=== PATIENT | female | born 1985 | race Caucasian/White ===

== ENCOUNTER 2024-07-25 08:16 | Outpatient (AMB) | payer OTHER, SELFPAY ==
--- NOTE | 2024-07-25 08:18 | A.OFFPC_ITS ---
Vital Signs 07/25/24 08:25 07/25/24 08:52 Height 5 ft 5 in Weight 174 lb 4 oz BMI 29.0 BP 118/68 Blood Pressure Location Lt brachial Position Sitting Respiration 13 Pulse 111 H 90 Pulse Source Pulse Oximeter Auscultation Temp 97.3 F Temp Source Oral Pulse Oximetry (%) 100 Oxygen Delivery Method Room Air Intake Visit Reasons: Est. 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 Allergies sulfamethoxazole [From Bactrim] Allergy (Severe, Verified 07/25/24 08:34) Rash trimethoprim [From Bactrim] Allergy (Severe, Verified 07/25/24 08:34) Rash hydroxychloroquine Allergy (Mild, Verified 07/25/24 08:35) Rash Medication List - Last Reconciled 07/25/24 by Lauren Owens, [facility]- valacyclovir 500 mg PO BID Tobacco use date assessed: 07/25/24 Dental Screening Dental Screen Date: 07/25/24 Did you have a dental visit in the last 12 months?: Yes Did you have a dental problem in the last 6 months where you did not have access to dental care?: No Was dental information given to patient?: Patient has dentist HPI HPI Comments History of Present Illness Details 38 y/o F with Rheumatoid arthritis, psor iasis, leukopenia, endometreosis, HSV 1, seasonal allergies, GIOVANI +, residential use of immunosuppresant drug, hx of abnormal pap ASCUS HPV 2010 s/p colpo s/p cholecystectomy, ovarian cyst removal, d&c missed Family hx: Dad ?? 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 Health Maintenance: Mammo June 2024 @ [facility] P[facility] 11/14/22 wnl Tdap 2016 Flu UTD Specialists: Rheumatology Angel Reis Previous PCP: [facility], records rec'd and reviewed Here today to establish care and for complete physical exam [facility], Dr. Mas. Was most recently on Humira but this was stopped several months ago due to concern for it contributing to her scalp psoriasis. Unfortunately it did not help her salt psoriasis at all. She reports that her rheumatoid symptoms are under control off of the medication. 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 Declined referral; risk w/ hx of meds for RA in the past Exam: General: Well developed, well nourished, in no acute distress. Appears stated age. Head: Normocephalic, atraumatic. Eyes: Pupils are equal, round and reactive to light and accommodation. Conjunctivae are clear. Vision grossly normal. Ears: TMs clear AU, EACS WNL Nose: Patent, without discharge. Mouth: There are no ulcers or lesions noted. No inflammation, no post nasal drip, no plaques nor exudates. Neck: Supple, no adenopathy or thyromegaly. Lungs: Clear to auscultation bilaterally. No rales, rhonchi or wheeze noted. Good air flow in all mitchell. Heart: Regular rate and rhythm. No murmurs, click, rubs or gallops are noted. Abdomen: Bowel sounds present in all quadrants. The abdomen is soft, nontender, with no masses or organomegaly noted. No hernias are noted. Musculoskeletal: Joints are nontender, without swelling, redness, or effusions. Range of motion is observed to be normal. Pulses: Peripheral pulses are equal and palpable bilaterally. Extremities: No clubbing, cyanosis nor edema is noted. Neurologic: Gait and station normal. Cranial Nerves 2-12 intact. Motor strength grossly symmetrical and intact. No sensory loss. Balance normal. Skin: No rashes, ulcers, or lesions noted. Turgor is good. Skin color is good. Hair and nails are without abnormalities. Right shoulder blade is a raised warty appearing lesion- advised to have derm eval this. Psych: Normal eye contact, affect and mood appropriate, and normal interactions. Patient is alert and appropriate to context. Discussion We discussed the patient's history of rheumatoid arthritis and psoriasis, including past medications and their impact. I explained the reasoning for obtaining baseline lab work in light of her mother's hemochromatosis diagnosis. The patient consented to receiving lab workups, which will include kidney and liver function tests, diabetes screening, CBC, ferritin, thyroid functions, and microalbumin levels. We reviewed the importance of keeping up with health screenings, such as mammograms, and noted she received a flu vaccine this season and is up to date with her tetanus shot. Her mammogram was normal earlier this year. I stressed the importance of using the patient portal for communication as it ensures expeditious and proper follow-up care. It's crucial that she promptly follows through to avoid complications from elevated iron levels. Plan: Cont care w/ team Baseline labs today - results will be sent to portal Refilled valacylovir RTO 1 year CPE, sooner PRN PFSH Medical History (Updated 07/25/24 @ 08:56 [facility] Hx of abnormal cervical Pap smear Ovarian cyst Surgical History (Updated 07/25/24 @ 08:34 by ERMELINDA Martin) History of D&C History of removal of ovarian cyst Hx laparoscopic cholecystectomy Family History (Updated 07/25/24 @ 08:30 by Varsha Grant MA) Maternal Grandmother Lung cancer Maternal Grandfather Substance abuse Social History (Updated 07/25/24 @ 08:25 by Varsha Grant MA) Household Members: Family and Children Both parents involved: No Caregiver staying overnight: No Housing: House Are you a primary care aide to a significant other at home: No Do you presently have visiting nurse or other home services: No 75 years or older and lives alone: No Alcohol intake: current Alcohol intake frequency: a few times a month Patient Tobacco Use Status: Never used Tobacco e-Cigarette/Vaping Use: Never Used Second Hand Smoke Exposure: No service: No Current occupational status: employed 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 1. Little interest or pleasure in doing things: not at all 2. Feeling down, depressed, or hopeless: not at all 3. Trouble falling or staying asleep, or sleeping too much: several days 4. Feeling tired or having little energy: not at all 5. Poor appetite or overeating: not at all 6. Feeling bad about yourself - or that you are a failure or have let yourself or your family down: not at all 7. Trouble concentrating on things, such as reading the newspaper or watching television: not at all 8. Moving or speaking so slowly that other people could have noticed. Or the opposite - being so fidgety or restless that you have been moving around a lot more than usual: not at all 9. Thoughts that you would be better off or of hurting yourself in some way: not at all Total score: 1 Depression Screening Interpretation: Negative Depression Screening Done: Yes 55001 - PHQ-9 Billing: Yes Source: Developed by Drs. Syed Alvarado, Ida Javed, Luis Hutchinson and colleagues, with an educational cesar from [employer]. Thrive Questionnaire Date Thrive assessed: 07/25/24 I am a: Patient What is your living situation today?: I have a steady place to live Within the past 12 months, did the food you bought not last and you didn't have the money to get more?: Never true Within the past 12 months, did you worry whether your food would run out before you got money to buy more?: Never true Do you have trouble paying for medicines?: No Do you have trouble getting transportation to medical appointments?: No Do you have trouble paying your heating and electricity bill?: No Do you have trouble taking care of your child, family member or friend?: No Do you have trouble with day-to-day activities such as bathing, preparing meals, shopping, managing finances, etc.?: No Are you currently unemployed and looking for a job?: No Are you interested in more education?: No Please select the resources that you would like help with: None Currently or been in a relationship where the following occur: No concerns reported THRIVE Score: 0 AUDIT C Alcohol Use Questionnaire (AUDIT-C) 1. How often do you have a drink containing alcohol?: 2-3 times a week 2. How many drinks containing alcohol do you have on a typical day when you are drinking?: 3 or 4 3. How often do you have six or more drinks on one occasion?: Never Total Score: 4 Score Reviewed/Action Taken: Yes NDAYA-7 AMB Questionnaire NADYA-7 Date NADYA - 7 assessed: 07/25/24 Feeling nervous, anxious, or on edge: 0 = Not at all Not being able to stop or control worryin = Not at all Worrying too much about different things: 0 = Not at all Trouble relaxin = Not at all Being so restless that it is hard to sit still: 0 = Not at all Becoming easily annoyed or irritable: 0 = Not at all Feeling afraid as if something awful might happen: 0 = Not at all Total NADYA-7 score (0-4 normal; 5-9 mild; 10-14 moderate; 15-21 severe): 0 Source: Developed by Drs. Syed Alvarado, Ida Javed, Luis vicente nd colleagues, with an educational cesar from [employer]. NADYA-7 Assessment Billing NADYA-7 Assessment Tool: NADYA-7 Assessment 31152 Physical exam (Primary Care) Vital Signs: Last Vital Signs Temp 97.3 F 07/25/24 08:25 Pulse 111 H 07/25/24 08:25 Resp 13 07/25/24 08:25 BP 118/68 07/25/24 08:25 Pulse Ox 100 07/25/24 08:25 Oxygen Delivery Method Room Air 07/25/24 08:25 BMI result Body Mass Index 29.0 Tobacco/Smoking Status: Tobacco use Status Tobacco use date assessed 07/25/24 07/25/24 08:27 Patient Tobacco Use Status Never used Tobacco 07/25/24 08:27 e-Cigarette/Vaping Use Never Used 07/25/24 08:27 PHQ-9: PHQ-9 Score PHQ-9: Total score 1 07/25/24 08:22 Depression Screening Interpretation: Negative Thrive Assessment: Date of Thrive Assessment Date Thrive assessed 07/25/24 07/25/24 08:22 Currently or been in a relationship where the following occur: No concerns reported Coding Level of Care Code New Pt Prev Care 40-64y(73516) Diagnoses Encounter for general adult medical examination without abnormal findings Z00.00 Rheumatoid arthritis involving multiple sites with positive rheumatoid factor M05.79 Rheumatoid arthritis location: multiple sites Rheumatoid factor presence: with rheumatoid factor 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 Neutropenia type: cyclic HSV-1 (herpes simplex virus 1) infection B00.9 GIOVANI positive R76.8 Endometriosis N80.9 Long-term use of immunosuppressant medication Z79.60 Family history of hemochromatosis Z83.49 Additional Codes NADYA-7 Assessment Billing - NADYA-7 Assessment Tool: NADYA-7 Assessment 20326 ([id number]) PHQ-9 - 00587 - PHQ-9 Billing: Yes ([id number]) Assessment & Plan Assessment & Plan (1) Encounter for general adult medical examination without abnormal findings: Code(s): Z00.00 - Encounter for general adult medical examination without abnormal findings (2) Rheumatoid arthritis: Comment: Dr Mas Code(s): M06.9 - Rheumatoid arthritis, unspecified Category: Medical Qualifiers: Rheumatoid arthritis location: multiple sites Rheumatoid factor presence: with rheumatoid factor Qualified Code(s): M05.79 - Rheumatoid arthritis with rheumatoid factor of multiple sites without organ or systems involvement (3) Leukopenia: Code(s): D72.819 - Decreased white blood cell count, unspecified Category: Medical Qualifiers: Leukopenia type: neutropenia Neutropenia type: cyclic Qualified Code(s): D70.4 - Cyclic neutropenia (4) HSV-1 (herpes simplex virus 1) infection: Code(s): B00.9 - Herpesviral infection, unspecified Category: Medical (5) GIOVANI positive: Code(s): R76.8 - Other specified abnormal immunological findings in serum Category: Medical (6) Endometriosis: Code(s): N80.9 - Endometriosis, unspecified Category: Medical (7) Long-term use of immunosuppressant medication: Comment: was on humira; currently off Code(s): 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 Orders: Orders Ferritin Today D72.819 - Decreased white blood cell count, unspecified, M06.9 - Rheumatoid arthritis, unspecified Hemoglobin A1c Today D72.819 - Decreased white blood cell count, unspecified, M06.9 - Rheumatoid arthritis, unspecified Vitamin B12 and Folate Today D72.819 - Decreased white blood cell count, unspecified, M06.9 - Rheumatoid arthritis, unspecified Vitamin D 25-OH Total Today D72.819 - Decreased white blood cell count, unspecified, M06.9 - Rheumatoid arthritis, unspecified Complete Blood Count no Diff Today D72.819 - Decreased white blood cell count, unspecified, M06.9 - Rheumatoid arthritis, unspecified Comprehensive Met. Panel Today D72.819 - Decreased white blood cell count, unspecified, M06.9 - Rheumatoid arthritis, unspecified Microalbumin, Random (w Creat) Today D72.819 - Decreased white blood cell count, unspecified, M06.9 - Rheumatoid arthritis, unspecified TSH reflex Free T4 Today D72.819 - Decreased white blood cell count, unspecified, M06.9 - Rheumatoid arthritis, unspecified Medications: New valacyclovir 500 mg PO BID 30 tabs 4RF Patient Instructions: Health screenings for women You should visit your health care provider from time to time, even if you are healthy. The purpose of these visits is to: Screen for medical issues Assess your risk for future medical problems Encourage a healthy lifestyle Update vaccinations and other preventive care services Help you get to know your provider in case of an illness Information Even if you feel fine, you should still see your provider for regular checkups. These visits can help you avoid problems in the future. For example, the only way to find out if you have high blood pressure is to have it checked regularly. High blood sugar and high cholesterol levels also may not have any symptoms in the early stages. A simple blood test can check for these conditions. There are specific times when you should see your provider or receive specific health screenings. The [place] Preventive Services Task Force publishes a list of recommended screenings. Below are screening guidelines for women ages 18 to 39. BLOOD PRESSURE SCREENING Your blood pressure should be checked at least once every 3 to 5 years if: Your blood pressure is in the normal range (top number less than 120 mm Hg and bottom number less than 80 mm Hg) You don't have risk factors for high blood pressure Ask your provider if you need your blood pressure checked more often if: The top number is 120 to 129 mm Hg or the bottom number is 70 to 79 mm Hg You have diabetes, heart disease, kidney problems, are overweight, or have certain other health conditions You have a first-degree relative with high blood pressure You are Black You had high blood pressure during a If the top number is 130 mm Hg or greater or the bottom number is 80 mm Hg or greater, this is considered stage 1 hypertension. Schedule an appointment with your provider to learn how you can reduce your blood pressure. Watch for blood pressure screenings in your area. Ask your provider if you can stop in to have your blood pressure checked. BREAST CANCER SCREENING Experts do not agree about the benefits of breast self-exams in finding breast cancer or saving lives. Talk to your provider about what is best for you. A screening mammogram is not recommended for most women under age 40. Your provider may discuss and recommend mammograms, MRI scans, or ultrasounds if you have an increased risk for breast cancer, such as: A mother or sister who had breast cancer at a young age (most often starting screening earlier than the age the close relative was diagnosed) You carry a high-risk genetic marker CERVICAL CANCER SCREENING Cervical cancer screening should start at age 21 years unless your provider advises otherwise. After the first test: Women ages 21 through 29 should have a Pap test every 3 years. Exoprts do not agree on whether HPV testing is recommended for this age group. Women ages 30 through 65 should be screened with either a Pap test every 3 years or the HPV test every 5 years or both tests every 5 years (called cotesting ). Women who have been treated for precancer (cervical dysplasia) should continue to have Pap tests for 20 years after treatment or until age 65, whichever is longer. If you have had your uterus and cervix removed (total hysterectomy), and you have not been diagnosed with cervical cancer or precancer (high grade cervical neoplasia), you do not need cervical cancer screening. CHOLESTEROL SCREENING Cholesterol screening should begin at: Age 45 for women with no known risk factors for coronary heart disease Age 20 for women with known risk factors for coronary heart disease Repeat cholesterol screening should take place: Every 5 years for women with normal cholesterol levels More often if changes occur in lifestyle (including weight gain and diet) More often if you have diabetes, heart disease, kidney problems, or certain other conditions DIABETES SCREENING You should be screened for diabetes starting at age 35 and then repeated every 3 years if you have no risk factors for diabetes. Screening may need to start earlier and be repeated more often if you have other risk factors for diabetes, such as: You have a first degree relative with diabetes. You are overweight or have obesity. You have high blood pressure, prediabetes, or a history of heart disease. Screening for diabetes should be done if you are planning to become and you are overweight and have other risk factors such as high blood pressure. DENTAL EXAM Go to the dentist once or twice every year for an exam and cleaning. Your dentist will evaluate if you need more frequent visits. EYE EXAM Have an eye exam every 5 to 10 years before age 40. If you have vision problems, have an eye exam every 2 years or more often if recommended by your provider. You should have an eye exam that includes an examination of your retina (back of your eye) at least every year if you have diabetes. IMMUNIZATIONS Commonly needed vaccines include: Flu shot: get one every year. COVID-19 vaccine: ask your provider what is best for you. Tetanus-diphtheria and acellular pertussis (Tdap) vaccine: have one at or after age 19 as one of your tetanus-diphtheria vaccines if you did not receive it as an adolescent. Tetanus-diphtheria: have a booster (or Tdap) every 10 years. Varicella vaccine: receive 2 doses if you never had chickenpox or the varicella vaccine. Hepatitis B vaccine: receive 2, 3, or 4 doses, depending on your exact circumstances. Measles, mumps, and rubella (MMR) vaccine: receive 1 to 2 doses if you are not already immune to MMR. Your provider can tell you if you are immune. Ask your provider about the human papillomavirus (HPV) vaccine if: You have not received the HPV vaccine in the past You have not completed the full vaccine series (you should catch up on this shot) Ask your provider if you should receive other immunizations if you have certain health problems that increase your risk for some diseases such as pneumonia. INFECTIOUS DISEASE SCREENING Women who are sexually active should be screened for chlamydia and gonorrhea up until age 25. Women 25 years and older should be screened for chlamydia and gonorrhea if at high risk. Screening for hepatitis C: All adults ages 18 to 79 should get a one-time test for hepatitis C. people should be screened at every . Screening for human immunodeficiency virus (HIV): All people ages 15 to 65 should get a one-time test for HIV. Depending on your lifestyle and medical history, you may also need to be screened for infections such as syphilis and HIV, as well as other infections. PHYSICAL EXAM All adults should visit their provider from time to time, even if they are healthy. The purpose of these visits is to: Screen for disease Assess your risk of future medical problems Encourage a healthy lifestyle Update your vaccinations and other preventive care services Maintain a relationship with a provider in case of an illness Your height, weight, and BMI should be checked at every exam. During your exam, your provider may ask you about: Depression and anxiety Diet and exercise Alcohol and tobacco use Safety issues, such as using seat belts, smoke detectors, and intimate partner violence Your medicines and risk for interactions SKIN SELF-EXAM Your provider may check your skin for signs of skin cancer, especially if you're at high risk, such as if you: Have had skin cancer before Have close relatives with skin cancer Have a weakened immune system OTHER SCREENING Talk with your provider about colon cancer screening if you have a strong family history of colon cancer or polyps, or if you have had inflammatory bowel disease or polyps yourself. Routine bone density screening of women under 40 is not recommended. Walk-In Care (Urgent Care): We Make it Easy Walk-in for urgent medical issues such as: ? Seasonal Allergies ? Insect Bites ? Cough ? Diarrhea ? Acute Asthma Attacks ? Back, Knee or Joint Pain ? Ear Infection ? Fever without a Rash ? Headaches ? Nausea ? [place], Rash or Skin Irritation ? Sore Throat ? Sports Physicals ? Vomiting Most insurances are accepted. Patients do not need to be part of the [facility] to seek care at the walk-in clinic. Locations [facility] [place] [address] ? [phone] [facility] [facility] [place] provides services to ages 18 and over. Open Monday-Monday: 8 a.m. to 5 p.m. and Monday: 9 a.m. to 3 p.m.* *Hours may vary due to staffing availability. To confirm Walk-In Care hours in [place], please call [phone]. [address] [place] [address] ? [phone] [facility] [place] provides services to ages 12 and over. Open Monday-Monday: 8 a.m. to 5 p.m. Hours may vary due to staffing availability. To confirm Walk-In Care hours in [place], please call [phone]. LABORATORY SERVICES: [facility] [place] Lab ? Primary Location [address] [place] [address] Monday through Monday 6:00 AM ? 5:00 PM Monday 7:00 AM ? 11:00 AM* [phone] The [facility] [place] Lab is centrally located near the front entrance of the [facility] for easy outpatient access. Convenient parking is provided for outpatients. *Hours may vary due to staffing availability. To confirm Laboratory hours for any location, please call [phone]. Offsite Location For your convenience, we offer offsite laboratory draw stations at the following locations: [address] [place] [address] ? [facility] [address] [facility], [address], [place] Monday through Monday 7:30 AM ? 1:00 PM* [phone] *Hours may vary due to staffing availability. To confirm Laboratory hours for any location, please call [phone]. [place] ? [address], [place] Monday through Monday 6:00 AM ? 3:30 PM* Monday 6:30 AM ? 3 PM* [phone] *Hours may vary due to staffing availability. To confirm Laboratory hours for any location, please call [phone] [place] [address] Monday through Monday 7:30 AM ? 4:00 PM* [phone] *Hours may vary due to staffing availability. To confirm Laboratory hours for any location, please call [phone] [place] [address] Monday through 9:00 AM ? 4:00 PM* *Hours may vary due to staffing availability. To confirm Laboratory hours for any location, please call [phone]. Appointments are not necessary. Walk-ins are welcome. Like all the departments throughout the [facility], our Lab undergoes frequent reviews to ensure the quality and accuracy of test results, and our staff takes special pride in its status as a nationally accredited facility. Patient Portal: ONE PATIENT. ONE RECORD. BETTER CARE. [facility] has a fully integrated, cutting- edge mobile electronic health information system that has revolutionized the way we care for our patients and manage our organization. This system improves communication and coordination enabling us to provide safe, higher-quality care, and an overall positive experience for staff and patients. Our first priority, as always, is to deliver the highest quality care possible. The system is running in the background supporting that priority. This portal is for all [facility] services and practices. If you are experiencing any technical difficulties with enrolling or logging into the Patient Portal please complete the [facility] Patient Portal Technical Support Form. [facility] now offers a new secure on-line interactive tool for patients to review their health information ? ?Patient Portal. This interactive web portal will enable patients and their families to take an active role in their care by providing easy, secure access to their health information via the internet. The Patient Portal provides patients with instant access to their health information, including laboratory results, medications, allergies, demographic information, visit history, and more. In addition to managing their own care, parents and health care proxies with authorized consent will appreciate the ability to access the records of those individuals for whom they provide care. Please note: if you wish to gain access (Proxy) to another patient?s portal, you will be required to come to the Medical Records Department in person at [facility]. Both the patient giving proxy access and the proxy will need to provide photo identification and complete the appropriate authorization. The Patient Portal also allows track their appointments online. The [facility] Patient Portal also saves patients time by allowing them to submit updates to their demographic and contact information prior to their visits. Portal email notifications will also alert patients to any new activity on their portal, such as test results and new appointments. In order to initially enroll in the [facility] Patient Portal, you will need to enter some required information including the following: * your [facility] Medical Record number * your personal home email address * name * date of Please note: In order to enroll in the [facility] Patient Portal, we need to have your email address on file in your electronic medical record. ?The email address needs to be specific for one person (yourself) in order for your Portal enrollment to be successful. ?You can update your email address in person with our Registration staff when you are registering for a hospital visit. ?Otherwise, you will need to come to the Health Information Management (Medical Records) Department at [facility]. ?We are open from Monday ? Monday from 7:30 a.m. ? 4:30 p.m. ?You will be required to present a photo id. Once you have successfully enrolled in the Patient Portal, you will receive a one-time user id and password for the Portal, sent to your email address. ?This will allow you to log into the Patient Portal within 99 hrs and reset your own logon id and password, and define personal security questions. ?Once your permanent login and password have been set, you can log into the [facility] Patient Portal at any time via the blue button above or from the Portal Logon button on any page of the [facility] website. [facility] and [facility] encourage all of our patients to enroll in Patient Portal as it presents a valuable opportunity for patients and their families to actively participate in their care and stay healthy Welcome to [facility]. ?We look forward to working with you.
--- OUTSIDE RECORDS SUMMARY | 2024-07-25 08:22 | XMS_ITS | Clinical Summary ---
Author Organization [employer] Address [address] 7 [place] [address] Care Team Providers Care Paper Supervisor Name Role Phone Unavailable Primary Care Provider Unavailabl e Immunizations Name Administration Dates Next Due Influenza, seasonal, injectable, preservative fr ee 01/03/2024 Social History Tobacco Use Types Packs/Day Years Used Date Smoking Tobacco: Never Assessed Comments Unknown Sex and Gender Information Value Date Recorded Sex Assigned at Unknown 01/03/2024 9:26 AM EDT Legal Sex Female 9:22 AM EDT Gender Identity Female 01/03/2024 9:26 AM EDT Sexual Orientation Straight 01/03/2024 9: 26 AM EDT Plan of Treatment Health Maintenance Due Date Last Done Comments Depression Screening 1983 HIV Screening 1983 Lipid Panel 1983 SDOH Screening 1983 Alcohol/Substance Use Screening 1995 Tobacco Screening 1995 Family Planning (PISQ) 11/03/1998 Hepatitis C Screening 11/03/2001 Hepatitis B Vaccines (1 of 3 - 19+ 3-dose series) 11/03/2002 Pap Smear 11/03/2004 Cervical Cancer Screening 11/03/2013 HPV/Cotest 11/03/2013 Mammogram 2023 COVID-19 Vaccine ( season) 2023 06/19/2020, 05/22/2020 DTaP/Tdap/Td Vaccines (3 - Td or Tdap) 03/22/2026 03/22/2016, 12/28/2006 Zoster Vaccines (1 of 2) 11/03/2033 RSV Patients and Patients Aged 60 years or older (1 - 1-dose 75+ series) 11/03/2058 Influenza Vaccine Completed 01/03/2024, , 02/01/2020, Additional history exists HIB Vaccines Aged Out No longer eligi ble based on patient's age to complete this topic HPV Vaccines Aged Out No longer eligi ble based on patient's age to complete this topic Hepatitis A Vaccines Aged Out No long er eligible based on patient's age to complete this topic IPV Vaccines Aged Out No longer eligi ble based on patient's age to complete this topic Meningococcal Vaccine Aged Out No maikel marta eligible based on patient's age to complete this topic Pneumococcal Vaccine: Pediatrics (0 to 5 Years) and At-Risk Patients (6 to 49) Years) Aged Out No longer eligible based on patient's age to complete this topic RSV under 20 months Aged Out No longe r eligible based on patient's age to complete this topic Rotavirus Vaccines Aged Out No longer eligible based on patient's age to complete this topic Insurance , [address] [place] [address]
--- OUTSIDE RECORDS SUMMARY | 2024-07-25 08:22 | XMS_ITS | Clinical Summary ---
Author Organization [address] [place] [address] [place] [phone] Phone Care Team Providers Care Community Service Worker Name Role Phone Emelia Purvis MD Primary Care Provider [phone] Encounters Date Type Department Care Team Description 06/29/2024 2:41 PM EST - 06/29/2024 11:59 PM EST Hospital Encounter Radiology Department [address] [phone] Encounter for screening mammogram for breast cancer Discharge Disposition: Home or Self Care 06/04/2024 3:15 PM EST - 06/04/2024 11:59 PM EST Hospital Encounter Walk-In Clinic [address] [phone] Discharge Disposition: Home or Self Care 06/04/2024 2:30 PM EST Office Visit Walk-In [address] [phone] Leonardo Redmond MD Anterior chest wall pain (Primary Dx); Muscle strain of chest wall, initial encounter from Last 3 Months Surgical History Surgery Date Site/Laterality Comments WISDOM TOOTH EXTRACTION PROCEDURE: HISTORICAL WISDOM TEETH EXTRACTION; COMMENT: 09/30 OTHER SURGICAL HISTORY 04/24/2012 PROCEDURE: IN DILATION & CURETTAGE DX&/THER NONOBSTETRIC; COMMENT: missed ab OTHER SURGICAL HISTORY 04/24/2012 PROCEDURE: LAPAROSCOPY, SURGICAL/BIOPSY; COMMENT: ovarian biopsy of chocolate cyst OTHER SURGICAL HISTORY 09/02/2020 N/A PROCEDURE: IN LAPS SURG CHOLECYSTECTOMY W/CHOLANGIOGRAPHY; COMMENT: Fauzia Dawkins Medical History Medical History Date Comments Atopic dermatitis DX:Atopic derm atitis Papanicolaou smear of cervix with atypical squamous cells of undetermined significance (ASC-US) DX:Papanicolaou sme ar of cervix with atypical squamous cells of undetermined significance (ASC-US); COMMENT: HPV 04/2009, colpo is negative 05/2009 Inflammatory polyarthropathy (CMS/HCC) 09/09/2014 DX:Inflammatory polyarthropa thy (HCC); COMMENT: Onset fall 2013: 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 + Raynaud's symptoms. 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 Family History Medical History Relation Name Comments Arthritis Father Other cancer Maternal Grandmother lung Breast cancer Neg Hx Relation Name Status Comments Father (Age 30) Maternal Grandfather (Age 79) sm oker - emphysema Maternal Grandmother (Age ?) ?ca ncer Mother Alive Sister Alive twin Social History Tobacco Use Types Packs/Day Years Used Date Smoking Tobacco: Never Smokeless Tobacco: Never Alcohol Use Standard Drinks/Week Comments Yes 0 (1 standard drink = 0.6 oz pur e alcohol) Comments Unknown Sex and Gender Information Value Date Recorded Sex Assigned at Not on file Legal Sex Female 8:57 PM EST Gender Identity Not on file Sexual Orientation Not on file Obstetrics History Para Term AB IAB SAB Ectopic Multiple Livin g Live Births 1 1 1 1 Date Outcome GA Total Labor Labor/2nd/3rd Weight Sex Type Anes PTL Lidya A1 A5 Name Clin Term Last Filed Vital Signs Vital Sign Reading Time Taken Comments Blood Pressure 142/88 06/04/2024 2:58 PM EST Pulse 77 06/04/2024 2:58 PM EST Temperature 36.6 ??C (97.8 ??F) 06/04/2024 2:58 PM ES T Respiratory Rate - - Oxygen Saturation 98% 06/04/2024 2:58 PM EST Inhaled Oxygen Concentration - - Weight 78 kg (172 lb) 12/07/2023 8:01 AM EDT Height 165.1 cm (5' 5 ) 12/07/2023 8:01 AM EDT Body Mass Index 28.62 12/07/2023 8:01 AM EDT Plan of Treatment Health Maintenance Due Date Last Done Comments Hepatitis B Vaccines (1 of - 19+ 3-dose series) 11/03/2002 Depression Screening 04/02/2022 HIV Screening 04/02/2022 Hepatitis C Screening 04/02/2022 Social Influencers of Health Screening 04/02/2022 COVID-19 Vaccine (3 - 2023- season) 2023 06/19/2020, 05/22/2020 Cervical Cancer Screening: Pap Smear 11/14/2025 11/14/2022, 02/16/2018 DTaP,Tdap,and Td Vaccines (3 - Td or Tdap) 03/22/2026 03/22/2016, 12/28/2006 Breast Cancer Screening 06/29/2026 06/29/2024 Influenza Vaccine Completed 01/03/2024, , 02/01/2020, Additional [...] on patient's age to complete this topic MMR Vaccines Aged Out No longer eligi ble based on patient's age to complete this topic Meningococcal ACWY Vaccine Aged Out N o longer eligible based on patient's age to complete this topic Meningococcal B Vacine Aged Out No lo nger eligible based on patient's age to complete this topic Pneumococcal Vaccine: Pediatrics (0 to 5 Years) and At-Risk Patients (6 to 64 Years) Aged Out No longer eligible based on patient's age to complete this topic RSV Immunization Patients Under 20 months Aged Out No longer eligible based on patient's age to complete this topic Varicella Vaccines Aged Out No longer eligible based on patient's age to complete this topic Procedures Procedure Name Priority Date/Time Associated Diagnosis Comments MG MAMMO DIGITAL SCREENING W BLU BILAT Routine 06/29/2024 2:56 PM EST Encounter for screening mammogram for breast cancer XR CHEST 2 VIEWS STAT 06/04/2024 3:23 PM EST Anterior chest wall pain PAP SMEAR Routine 11/14/2022 from Last 3 Months or Most Recently Relevant to Health Maintenance Results * MG Mammo Digital Screening w Blu bilat (06/29/2024 2:56 PM EST) Anatomical Region Laterality Modality Breast Bilateral Mammography 07/01/2024 11:4 9 AM EDT Impressions 07/01/2024 11:54 AM EDT No mammographic evidence for malignancy. BI-RADS CATEGORY: 1 - NEGATIVE RECOMMENDATION: Screening bilateral mammogram is recommended in 1 year. Mammo Location: [facility], [address] [place] [address], [id number], . -------- FINAL REPORT -------- Dictated By: Carolyn Artis Dictated Date: 07/01/2024 11:49 ET Assigned Physician: Carolyn Artis Reviewed and Electronically Signed By: Carolyn Artis Signed Date: 07/01/2024 11:54 ET Workstation ID: [id number] Transcribed By: Self Edit Transcribed Date: 07/01/2024 11:49 ET Narrative 07/01/2024 11:54 AM EDT Baseline mammogram. ??Screening examination. Please take a note that last name is changed from VALENTINE ??to DIONY. CLINICAL: 38 years old, Female, routine annual exam. COMPARISON: Not available. ?? TECHNIQUE: Bilateral MLO and CC views were obtained digitally with 2-D C views and 3-D mammogram (digital breast tomosynthesis). Computer-aided detection was utilized in evaluation of this exam (CAD). FINDINGS: There is no evidence of suspicious mass or architectural distortion. ??No worrisome calcifications are evident. ?? BREAST DENSITY: C - The breasts are heterogeneously dense which may obscure small masses. Procedure Note Carolyn Artis MD - 07/01/2024 Baseline mammogram. Screening examination. Please take a note that last name is changed from VALENTINE to DIONY. CLINICAL: 38 years old, Female, routine annual exam. COMPARISON: Not available. TECHNIQUE: Bilateral MLO and CC views were obtained digitally with 2-D Cviews and 3-D mammogram (digital breast tomosynthesis). Computer-aideddetection was utilized in evaluation of this exam (CAD). FINDINGS: There is no evidence of suspicious mass or architectural distortion. Noworrisome calcifications are evident. BREAST DENSITY: C - The breasts are heterogeneously dense which mayobscure small masses. IMPRESSION: No mammographic evidence for malignancy. BI-RADS CATEGORY: 1 - NEGATIVE RECOMMENDATION: Screening bilateral mammogram is recommended in 1 year. Mammo Location: [facility], [address] [place] [address], [id number], . -------- FINAL REPORT -------- Dictated By: Caroyln Artis Dictated Date: 07/01/2024 11:49 ET Assigned Physician: Carolyn Artis Reviewed and Electronically Signed By: Carolyn Artis Signed Date: 07/01/2024 11:54 ET Workstation ID: [id number] Transcribed By: Self Edit Transcribed Date: 07/01/2024 11:49 ET Brenden ESTRADA IMG BI PROCEDURES Final Resul t * XR Chest 2 Views (06/04/2024 3:23 PM EST) Anatomical Region Laterality Modality Body Radiographic Rae ging 06/04/2024 4:22 PM EST Narrative 06/04/2024 4:34 PM EST Chest, 2 views. History acute chest pain. No prior studies are available for comparison. There is no pneumothorax, pleural effusions or focal consolidations. Cardiomediastinal silhouette is unremarkable. CONCLUSIONS: Unremarkable chest radiographs. -------- FINAL REPORT -------- Dictated By: Carolyn Artis Dictated Date: 06/04/2024 16:22 ET Assigned Physician: Carolyn Artis Reviewed and Electronically Signed By: Carolyn Artis Signed Date: 06/04/2024 16:34 ET Workstation ID: [id number] Transcribed By: Self Edit Transcribed Date: 06/04/2024 16:22 ET Procedure Note Carolyn Artis MD - 06/04/2024 Chest, 2 views. History acute chest pain. No prior studies are available for comparison. There is no pneumothorax, pleural effusions or focal consolidations.Cardiomediastinal silhouette is unremarkable. CONCLUSIONS: Unremarkable chest radiographs. -------- FINAL REPORT -------- Dictated By: Carolyn Artis Dictated Date: 06/04/2024 16:22 ET Assigned Physician: Carolyn Artis Reviewed and Electronically Signed By: Carolyn Artis Signed Date: 06/04/2024 16:34 ET Workstation ID: [id number] Transcribed By: Self Edit Transcribed Date: 06/04/2024 16:22 ET us Leonardo Redmond MD IMG XR PROCEDURES Final Result * Pap smear (11/14/2022) 11/14/2022 Narrative HISTORICAL TESTING LAB RESULTING AGENCY - 11/22/2022 9:50 AM EDT [id number] THINPREP PAP, IMAGED: NEGATIVE FOR SQUAMOUS INTRAEPITHELIAL LESION AND MALIGNANCY . ABUNDANT PARTIALLY OBSCURING ACUTE INFLAMMATORY CELLS ARE PRESENT. DAPHNEY ESPINOZA , CT(ASCP) (CASE ELECTRONICALLY SIGNED 11 22 2022) RESULT OF APTIMA HIGH RISK HPV ASSAY: HIGH RISK HPV: ??NEGATIVE (SEROTYPES 16,18,31,33,35,39,45,51,52,56,58,59,66,68) COMPLETED ON 2022-11-15 ADEQUACY: SATISFACTORY ENDOCERVICAL/TRANSFORMATION ZONE COMPONENT PRESENT. SOURCE: THINPREP PAP HPV ANY DX: ??REFLEX 16 AND 18, CERVICAL, IMAGED CLINICAL INFORMATION: HPV ANY DIAGNOSIS. PAP HX NEGATIVE LAST PAP 02/16/18 NEG, HPV NEG, [Z01.419] us Brenden De Santiago CNM LAB CYTOLOGY ORDERABLES Final Result HISTORICAL TESTING LAB RESULTING AGENCY from Last 3 Months or Most Recently Relevant to Health Maintenance Insurance [facility] Care Teams Community Service Worker Relationship Specialty Start Date End Date Emelia Purvis MD PCP - General 10/06/23
[2024-07-25 08:25] VITALS: BP 118/68; PULSE 111; RESP 13; TEMP 36.3; O2SAT 100; BMI 29.0
[2024-07-25 08:52] VITALS: PULSE 90
== END 2024-07-25 08:50 | disposition home or self-care (01) ==
LOC: HO.HMCFM 08:17
PROVIDERS: PCP Nurse Practitioner Family; Visit Provider Nurse Practitioner Family
DX: Z00.00 Encounter for general adult medical examination without abnormal findings (principal); M05.79 Rheumatoid arthritis with rheumatoid factor of multiple sites without organ or systems involvement; D70.4 Cyclic neutropenia; B00.9 Herpesviral infection, unspecified; R76.8 Other specified abnormal immunological findings in serum; N80.9 Endometriosis, unspecified; Z79.60 Long term (current) use of unspecified immunomodulators and immunosuppressants; Z83.49 Family history of other endocrine, nutritional and metabolic diseases

== ENCOUNTER → 2024-07-25 08:16 | Outpatient (BNVA) | payer OTHER, SELFPAY | PROVIDERS: PCP Nurse Practitioner Family; Visit Provider Nurse Practitioner Family | DX: Z00.00 Encounter for general adult medical examination without abnormal findings (principal); M05.79 Rheumatoid arthritis with rheumatoid factor of multiple sites without organ or systems involvement; D70.4 Cyclic neutropenia; B00.9 Herpesviral infection, unspecified; R76.8 Other specified abnormal immunological findings in serum; N80.9 Endometriosis, unspecified; Z79.60 Long term (current) use of unspecified immunomodulators and immunosuppressants; Z83.49 Family history of other endocrine, nutritional and metabolic diseases | CPT/HCPCS: 96127 ==

== ENCOUNTER 2024-07-25 08:57 | Outpatient (REF) | payer OTHER, SELFPAY ==
--- OUTSIDE RECORDS SUMMARY | 2024-07-25 09:08 | XMS_ITS | Clinical Summary ---
Author Organization [employer] Address [address] [facility] 7 [place] [address] Care Team Providers Care Video Presentation Operator Name Role Phone Unavailable Primary Care Provider [...] complete this topic Insurance , [address] [place] [address]
--- OUTSIDE RECORDS SUMMARY | 2024-07-25 09:08 | XMS_ITS | Clinical Summary ---
Author Organization [address] [place] [address] [place] [phone] Phone Care Team Providers Care Quantitative Software Engineer Name Role Phone Emelia Purvis MD Primary Care Provider [phone] Encounters Date Type Department Care Team Description 06/29/2024 2:41 PM EST - 06/29/2024 11:59 PM EST Hospital Encounter Radiology Department [address] [phone] Encounter for screening mammogram for breast cancer Discharge Disposition: Home or Self Care 06/04/2024 3:15 PM EST - 06/04/2024 11:59 PM EST Hospital Encounter Walk-In Clinic [address] [phone] Discharge Disposition: Home or Self Care 06/04/2024 2:30 PM EST Office Visit Walk-In [address] [phone] Leonardo Redmond MD Anterior chest wall pain (Primary Dx); Muscle strain of chest wall, initial encounter from Last 3 Months Surgical History Surgery Date Site/Laterality Comments WISDOM TOOTH EXTRACTION PROCEDURE: HISTORICAL WISDOM TEETH EXTRACTION; COMMENT: 09/30 OTHER SURGICAL HISTORY 04/24/2012 PROCEDURE: ME DILATION & CURETTAGE DX&/THER NONOBSTETRIC; COMMENT: missed ab OTHER SURGICAL HISTORY 04/24/2012 PROCEDURE: LAPAROSCOPY, SURGICAL/BIOPSY; COMMENT: ovarian biopsy of chocolate cyst OTHER SURGICAL HISTORY 09/02/2020 N/A PROCEDURE: ME LAPS SURG CHOLECYSTECTOMY W/CHOLANGIOGRAPHY; COMMENT: Fauzia Dawkins [...] Onset fall 2013: 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 + Raynaud's symptoms. 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 Mammo Location: [facility], [address] [place] [address], [id number], . -------- FINAL REPORT -------- Dictated By: Carolyn Artis Dictated Date: 07/01/2024 11:49 ET Assigned Physician: Carolyn Artis Reviewed and Electronically Signed By: Carolyn Artis Signed Date: 07/01/2024 11:54 ET Workstation ID: [id number] Transcribed By: Self Edit Transcribed Date: 07/01/2024 [...] is recommended in 1 year. Mammo Location: [facility], [address] [place] [address], [phone], . -------- FINAL REPORT -------- Dictated By: Carolyn Artis Dictated Date: 07/01/2024 11:49 ET Assigned Physician: Carolyn Artis Reviewed and Electronically Signed By: Carolyn Artis Signed Date: 07/01/2024 11:54 ET Workstation ID: [id number] Transcribed By: Self Edit Transcribed Date: 07/01/2024 [...] Signed Date: 06/04/2024 16:34 ET Workstation ID: [id number] Transcribed By: Self Edit Transcribed Date: 06/04/2024 [...] Signed Date: 06/04/2024 16:34 ET Workstation ID: [id number] Transcribed By: Self Edit Transcribed Date: 06/04/2024 16:22 ET us Leonardo Redmond MD IMG XR PROCEDURES Final Result * Pap smear (11/14/2022) 11/14/2022 Narrative HISTORICAL TESTING LAB RESULTING AGENCY - 11/22/2022 9:50 AM EDT [id number] THINPREP PAP, IMAGED: NEGATIVE FOR SQUAMOUS INTRAEPITHELIAL [...] Most Recently Relevant to Health Maintenance Insurance [facility] Care Teams Quantitative Software Engineer Relationship Specialty Start Date End Date Emelia Purvis MD PCP - General 10/06/23
[2024-07-25 11:58] LABS: Hematocrit 40.5 % (37.0-47.0); Hemoglobin 13.8 g/dl (12.0-16.0); Mean Corpuscular HGB Conc 34.1 g/dl (31.0-35.0); Mean Corpuscular Hemoglobin 31.7 pg (27.0-33.0); Mean Corpuscular Volume 93.1 fL (80.0-98.0); Mean Platelet Volume 10.4 fL (9.4-12.3); Platelet Count 204 X10*3/uL (160-400); Red Blood Count 4.35 X10*6/uL (4.20-5.50); Red Cell Distribution Width 13.1 % (11.0-16.0); White Blood Count 4.5 X10*3/uL (4.8-10.8)
[2024-07-25 12:13] LABS: Estimated Average Glucose 103 mg/dL; Hemoglobin A1c % 5.2 % (<6.0); Total Hemoglobin (HGBA1C) 3683.7346 umol/L
[2024-07-25 12:24] LABS: Creatinine Urine 158.16 mg/dL; Microalbum/Creatinine Ratio Ur 7.5 ug/mg cr (<30)
[2024-07-25 12:39] LABS: Alanine Aminotransferase 94 U/L (0-31); Albumin Level 4.3 g/dL (3.5-5.0); Alkaline Phosphatase 55 U/L (39-117); Anion Gap 10 (12-20); Aspartate Amino Transferase 53 U/L (5-31); Bilirubin Total 0.8 mg/dL (0.0-1.0); Blood Urea Nitrogen 9 mg/dL (9-16); Calcium 9.3 mg/dL (8.4-10.2); Carbon Dioxide 26 mmol/L (22-29); Chloride 109 mmol/L (96-108); Estimated Glomerular Filt Rate > 60; Ferritin 117 ng/mL (10-250); Glucose Random 102 mg/dL (60-115); Potassium 4.2 mmol/L (3.3-5.1); Sodium 141 mmol/L (135-145); TSH reflex Free T4 1.47 uIU/mL (0.32-4.0); Total Protein 7.2 g/dL (6.5-8.0); Vitamin D 25-OH Total 31.3 ng/mL (>30)
[2024-07-25 12:48] LABS: Folate 5.8 ng/mL (> or = 4.0); Vitamin B12 311 pg/mL (200-900)
== END 2024-07-25 08:58 | disposition home or self-care (01) ==
LOC: HO.WFDLDS 08:57
PROVIDERS: Visit Provider Nurse Practitioner Family
DX: D72.819 Decreased white blood cell count, unspecified (principal); M06.9 Rheumatoid arthritis, unspecified; Z13.1 Encounter for screening for diabetes mellitus
CPT/HCPCS: 36415; 80053; 82043; 82306; 82570; 82607; 82728; 82746; 83036; 84443; 85027

== ENCOUNTER 2024-08-05 15:15 | Outpatient (AMB) | payer OTHER, SELFPAY ==
--- NOTE | 2024-08-05 17:06 | A.OFFPC_ITS ---
Intake Visit Reasons: schedule a telehealth visit Allergies sulfamethoxazole [From Bactrim] Allergy (Severe, Verified 07/25/24 08:34) Rash trimethoprim [From Bactrim] Allergy (Severe, Verified 07/25/24 08:34) Rash hydroxychloroquine Allergy (Mild, Verified 07/25/24 08:35) Rash Tobacco use date assessed: 07/25/24 Dental Screening Dental Screen Date: 07/25/24 HPI HPI Comments History of Present Illness Details 38 y/o F with Rheumatoid arthritis, psor iasis, leukopenia, endometreosis, HSV 1, seasonal allergies, GIOVANI +, alf use of immunosuppresant drug, hx of abnormal pap ASCUS HPV 2009 s/p colpo Telehealth visit today to review labs Labs from 07/25/2024 show a WBC of 4.5 which is chronic for she has known cyclical neutropenia otherwise CBC is normal, normal electrolytes, renal function, A1c 5.2%, elevated LFTs AST 53, ALT 94, vitamin B12, vitamin-D, TSH and normal urine microalbumin creatinine ratio In regards to the elevated LFTs, pt denies a hx of this. She has no abd maximo, n/v, travel outside the [place]. 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 Drinks 2-3 beers 2- 3xweek, which is now new. Was taking APAP and NSAID in May after pulling a muscle. Plan Recheck labs and include some additional labs if abnormal proceed w/ US and/or Referral to GI I asked that she send me a portal message once labs are complete (asked she go to [facility]) I will schedule fu appt after lab results are back, sooner PRN Total time 15 minutes. [facility] Medical History (Updated 07/27/24 @ 14:20 by SUKUMAR Martin-HERMAN) Hx of abnormal cervical Pap smear Ovarian cyst Surgical History (Updated 07/25/24 @ 08:34 by ERMELINDA Martin) History of D&C History of removal of ovarian cyst Hx laparoscopic cholecystectomy Family History (Updated 07/25/24 @ 08:30 by Varsha Grant MA) Maternal Grandmother Lung cancer Maternal Grandfather Substance abuse Social History (Updated 07/25/24 @ 08:25 by Varsha Grant MA) Household Members: Family and Children Both parents involved: No Caregiver staying overnight: No Housing: House Are you a primary transitional care liaison to a significant other at home: No Do you presently have visiting nurse or other home services: No 75 years or older and lives alone: No Alcohol intake: current Alcohol intake frequency: a few times a month Patient Tobacco Use Status: Never used Tobacco e-Cigarette/Vaping Use: Never Used Second Hand Smoke Exposure: No service: No Current occupational status: employed 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 Cognitive needs: No Hearing needs: No Vision needs: No Questionnaire Thrive Questionnaire Date Thrive assessed: 07/18/24 I am a: Patient What is your living situation today?: I have a steady place to live Within the past 12 months, did the food you bought not last and you didn't have the money to get more?: Never true Within the past 12 months, did you worry whether your food would run out before you got money to buy more?: Never true Do you have trouble paying for medicines?: No Do you have trouble getting transportation to medical appointments?: No Do you have trouble paying your heating and electricity bill?: No Do you have trouble taking care of your child, family member or friend?: No Do you have trouble with day-to-day activities such as bathing, preparing meals, shopping, managing finances, etc.?: No Are you currently unemployed and looking for a job?: No Are you interested in more education?: No Please select the resources that you would like help with: None Currently or been in a relationship where the following occur: No concerns reported THRIVE Score: 0 NADYA-7 AMB Questionnaire NADYA-7 Date NADYA - 7 assessed: 07/25/24 Source: Developed by Drs. Syed Alvarado, Ida Javed, Luis Hutchinson and colleagues, with an educational cesar from [employer]. Physical exam (Primary Care) Tobacco/Smoking Status: Tobacco use Status Tobacco use date assessed 07/25/24 08/05/24 17:06 Patient Tobacco Use Status Never used Tobacco 08/05/24 17:06 e-Cigarette/Vaping Use Never Used 08/05/24 17:06 Thrive Assessment: Date of Thrive Assessment Date Thrive assessed 07/18/24 08/05/24 17:06 Currently or been in a relationship where the following occur: No concerns reported Telehealth Telehealth Telehealth Platform: [employer] Location of provider rendering services: practice address Location of patient: address on file Patient Identification confirmed using: Name, : Yes Telehealth method: voice only Patient verbally consented to treatment: Yes Patient verbally consented to billing insurance company: Yes Patient informed of any privacy concerns related to visit: Yes Minutes spent on Phone/Video with Pt.: 7 Coding Level of Care Code Tele Est Pt Level 2 (74221) Complex EM visit Add On G2211 Diagnoses Elevated LFTs R79.89 GIOVANI positive R76.8 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 Neutropenia type: cyclic Assessment & Plan Assessment & Plan (1) Elevated LFTs: Code(s): R79.89 - Other specified abnormal findings of blood chemistry Category: Medical (2) GIOVANI positive: Code(s): R76.8 - Other specified abnormal immunological findings in serum Category: Medical (3) Leukopenia: Code(s): D72.819 - Decreased white blood cell count, unspecified Category: Medical Qualifiers: Leukopenia type: neutropenia Neutropenia type: cyclic Qualified Code(s): D70.4 - Cyclic neutropenia Plan . Orders: Orders Zinc 08/05/24 R76.8 - Other specified abnormal immunological findings in serum, R79.89 - Other specified abnormal findings of blood chemistry, R94.5 - Abnormal results of liver function studies Hepatitis A,B,C Profile 08/05/24 R76.8 - Other specified abnormal immunological findings in serum, R79.89 - Other specified abnormal findings of blood chemi stry, R94.5 - Abnormal results of liver function studies Ferritin 08/05/24 R76.8 - Other specified abnormal immunological findings in serum, R79.89 - Other specified abnormal findings of blood chemistry, R94.5 - Abnormal results of liver function studies Monotest 08/05/24 R76.8 - Other specified abnormal immunological findings in serum, R79.89 - Other specified abnormal findings of blood chemistry, R94.5 - Abnormal results of liver function studies Liver Panel 08/05/24 R76.8 - Other specified abnormal immunological findings in serum, R79.89 - Other specified abnormal findings of blood chemistry, R94.5 - Abnormal results of liver function studies
--- OUTSIDE RECORDS SUMMARY | 2024-08-05 17:43 | XMS_ITS | Clinical Summary ---
Author Organization [employer] Address [address] [facility] 7 [place] [address] Care Team Providers Care Bad Work Gatherer Name Role Phone Unavailable Primary Care Provider [...] complete this topic Insurance , [address] [place] [address]
--- OUTSIDE RECORDS SUMMARY | 2024-08-05 17:43 | XMS_ITS | Clinical Summary ---
Author Organization [address] [place] [address] [place] [phone] Phone Care Team Providers Care Central Office Trouble Shooter Name Role Phone Emelia Purvis MD Primary Care Provider [phone] Encounters Date Type Department Care Team Description 06/29/2024 2:41 PM EST - 06/29/2024 11:59 PM EST Hospital Encounter Radiology Department [address] [phone] Encounter for screening mammogram for breast cancer Discharge Disposition: Home or Self Care 06/04/2024 3:15 PM EST - 06/04/2024 11:59 PM EST Hospital Encounter Walk-In Clinic [address] [phone] Discharge Disposition: Home or Self Care 06/04/2024 2:30 PM EST Office Visit Walk-In [address] [phone] Leonardo Redmond MD Anterior chest wall pain (Primary Dx); Muscle strain of chest wall, initial encounter from Last 3 Months Surgical History Surgery Date Site/Laterality Comments WISDOM TOOTH EXTRACTION PROCEDURE: HISTORICAL WISDOM TEETH EXTRACTION; COMMENT: 09/30 OTHER SURGICAL HISTORY 04/24/2012 PROCEDURE: ID DILATION & CURETTAGE DX&/THER NONOBSTETRIC; COMMENT: missed ab OTHER SURGICAL HISTORY 04/24/2012 PROCEDURE: LAPAROSCOPY, SURGICAL/BIOPSY; COMMENT: ovarian biopsy of chocolate cyst OTHER SURGICAL HISTORY 09/02/2020 N/A PROCEDURE: ID LAPS SURG CHOLECYSTECTOMY W/CHOLANGIOGRAPHY; COMMENT: Fauzia Dawkins Medical History Medical History Date Comments Atopic dermatitis DX:Atopic derm atitis Papanicolaou smear of cervix with atypical squamous cells of undetermined significance (ASC-US) DX:Papanicolaou sme ar of cervix with atypical squamous cells of undetermined significance (ASC-US); COMMENT: HPV 04/2009, colpo is negative 05/2009 Inflammatory polyarthropathy (CMS/HCC V24, CMS/HCC V28) 09/09/2014 DX:Inflammatory polyarthropa thy (HCC); COMMENT: Onset fall 2013: pos GIOVANI, 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 + Raynaud's symptoms. 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 Mammo Location: [facility], [address] [place] [address], [address], . -------- FINAL REPORT -------- Dictated By: Carolyn Artis Dictated Date: 07/01/2024 11:49 ET Assigned Physician: Carolyn Artis Reviewed and Electronically Signed By: Carolyn Artis Signed Date: 07/01/2024 11:54 ET Workstation ID: [id number] Transcribed By: Self Edit Transcribed Date: 07/01/2024 [...] is recommended in 1 year. Mammo Location: [facility], [address] [place] [address], [address], . -------- FINAL REPORT -------- Dictated By: Carolyn Artis Dictated Date: 07/01/2024 11:49 ET Assigned Physician: Carolyn Artis Reviewed and Electronically Signed By: Carolyn Artis Signed Date: 07/01/2024 11:54 ET Workstation ID: [id number] Transcribed By: Self Edit Transcribed Date: 07/01/2024 11:49 ET us Brenden De Santiago CNM IMG BI PROCEDURES Final Resul t * [...] Signed Date: 06/04/2024 16:34 ET Workstation ID: [id number] Transcribed By: Self Edit Transcribed Date: 06/04/2024 [...] Signed Date: 06/04/2024 16:34 ET Workstation ID: [id number] Transcribed By: Self Edit Transcribed Date: 06/04/2024 16:22 ET Leonardo Redmond MD IMG XR PROCEDURES Final Result * Pap smear (11/14/2022) 11/14/2022 Narrative HISTORICAL TESTING LAB RESULTING AGENCY - 11/22/2022 9:50 AM EDT [id number] THINPREP PAP, IMAGED: NEGATIVE FOR SQUAMOUS INTRAEPITHELIAL [...] LAST PAP 02/16/18 NEG, HPV NEG, [Z01.419] Brenden De Santiago CNM LAB CYTOLOGY ORDERABLES Final Result HISTORICAL TESTING LAB RESULTING AGENCY from Last 3 Months or Most Recently Relevant to Health Maintenance Insurance [facility] Care Teams Central Office Trouble Shooter Relationship Specialty Start Date End Date Emelia Purvis MD PCP - General 10/06/23
== END 2024-08-05 17:05 | disposition home or self-care (01) ==
LOC: HO.HMCFM 15:15
PROVIDERS: PCP Nurse Practitioner Family; Visit Provider Nurse Practitioner Family
DX: R79.89 Other specified abnormal findings of blood chemistry (principal); R76.8 Other specified abnormal immunological findings in serum; D70.4 Cyclic neutropenia

== ENCOUNTER → 2024-08-05 15:15 | Outpatient (BNVA) | payer OTHER, SELFPAY | PROVIDERS: PCP Nurse Practitioner Family; Visit Provider Nurse Practitioner Family ==

== ENCOUNTER 2024-08-24 08:52 | Outpatient (REF) | payer OTHER, SELFPAY ==
--- OUTSIDE RECORDS SUMMARY | 2024-08-24 08:54 | XMS_ITS | Encounter Summary ---
Author Organization [facility] Address [address] [place] [address] Care Team Providers Care Per Diem Rn Name Role Phone Jhonatan-Eleni Shelton MD Primary Care Provider Unavailable Wilbert Tan MD Primary Care Provide r Unavailable Sonia Shea DO Primary Care Provider Unavaila Emelia Mirza MD Primary Care Provider Un available [facility], Pcp Primary Care Provider Unavailabl e Encounter Details Date Type Department Care Team Description 02/10/2014 Orders Only OBGYN - [place] [address] [place] [address] Julia Alexandra, NATALIE [address] [place] [address] Threatened miscarriage (Primary Dx) Social History Tobacco Use Types Packs/Day Years Used Date Smoking Tobacco: Never Smokeless Tobacco: Never Comments: Alcohol Use Standard Drinks/Week Comments No 0 (1 standard drink = 0.6 oz pur e alcohol) Sex Assigned at Date Recorded Not on file documented as of this encounter Plan of Treatment Not on file documented as of this encounter Results * HCG/ (BLOOD) QUANTITATIVE (02/11/2014 10:37 AM EDT) TOTAL BETA HCG, QUANTITATIVE 1352.0 mIU/mL 02/11/2014 2:54 PM EDT [facility] Comment: Quantitative HCG Reference Ranges Weeks of Gestation ? mIU/ML 3 ?? Weeks ?5.8 - 71.2 4 ?? Weeks ?9.5 - 750 5 ?? Weeks ?217 - 7,138 6 ?? Weeks ?158 - 31,795 7 ?? Weeks ?3,697 - 163,563 8 ?? Weeks ? 32,065 - 149,571 9 ?? Weeks ? 63,803 - 151,410 10 ??Weeks ? 46,509 - 186,977 12 ??Weeks ? 27,832 - 210,612 14 ??Weeks ? 13,950 - 62,530 15 ??Weeks ? 12,039 - 70,971 16 ??Weeks ?9,040 - 56,451 17 ??Weeks ?8,175 - 55,868 18 ??Weeks ?8,099 - 58,176 Non- Females ? 0.0-5.3 Postmenopausal Females ? 0.0-8.3 02/11/2014 10:3 7 AM EDT 02/11/2014 10:37 AM EDT Julia Alexandra [facility] Performing Organization Address City/State/[facility] de Phone Number [facility] documented in this encounter Visit Diagnoses Diagnosis Threatened miscarriage- Primary Threatened , unspecified as to episode of care documented in this encounter Care Teams Per Diem Rn Relationship Specialty Start Date End Date [place]-Eleni Shelton MD PCP - General 09/06/0610/05 Wilbert Tan MD PCP - General Internal Medicine 10/06/20 1 06/13/20 Sonia Shea DO PCP - General Internal Medicine 04/13/21 10/05/23 Emelia Purvis MD PCP - General Internal Medicine 10/06/23 [facility], Pcp PCP - General Internal Medicine 01/30/24 documented as of this encounter
--- OUTSIDE RECORDS SUMMARY | 2024-08-24 08:54 | XMS_ITS | Encounter Summary ---
Author Organization [facility] Address [address] [place] [address] Care Team Providers Care Cane Flume Watcher Name Role Phone Eleni Kenny MD Primary Care Provider Unavailable Wilbert Tan MD Primary Care Provide r Unavailable Sonia Shea DO Primary Care Provider Unavaila ble Emelia Purvis MD Primary Care Provider Un available [facility], Pcp Primary Care Provider Unavailabl e Encounter Details Date Type Department Care Team Description 03/18/2015 Release of Information Medical Records [address] [place] [id number] Abstract, Provider Social History Tobacco Use Types Packs/Day Years Used Date Smoking Tobacco: Never Smokeless Tobacco: Never Comments: Alcohol Use Standard Drinks/Week Comments Yes 0 (1 standard drink = 0.6 oz pur e alcohol) occ Sex Assigned at Date Recorded Not on file documented as of this encounter Plan of Treatment Not on file documented as of this encounter Visit Diagnoses Not on filedocumented in this encounter Care Teams Cane Flume Watcher Relationship Specialty Start Date End Date Eleni Kenny MD PCP - General 09/06/0610/05 Wilbert Tan MD PCP - General Internal Medicine 10/06/20 1 06/13/20 Sonia Shea DO PCP - General Internal Medicine 04/13/21 10/05/23 Emelia Purvis MD PCP - General Internal Medicine 10/06/23 [facility], Pcp PCP - General Internal Medicine 01/30/24 documented as of this encounter
--- OUTSIDE RECORDS SUMMARY | 2024-08-24 08:54 | XMS_ITS | Encounter Summary ---
Author Organization [facility] Address [address] [place] [address] Care Team Providers Care Right Of Way Cutter Name Role Phone Clark-Eleni Shelton MD Primary Care Provider Unavailable Wilbert Tan MD Primary Care Provide r Unavailable Sonia Shea DO Primary Care Provider Unavaila Emelia Mirza MD Primary Care Provider Un available [facility], Pcp Primary Care Provider Unavailabl e Encounter Details Date Type Department Care Team Description 02/01/2019 Pt. Non Urgent Medical Question Rheumatology - [address] [address] Carlton Alfaro MD Social History Tobacco Use Types Packs/Day Years Used Date Smoking Tobacco: Never Smokeless Tobacco: Never Comments: Alcohol Use Standard Drinks/Week Comments Yes 0 (1 standard drink = 0.6 oz pur e alcohol) occ Sex Assigned at Date Recorded Not on file documented as of this encounter Miscellaneous Notes * Telephone Encounter - Cristal Garcia M.A. - 02/04/2019 8:05 AM EDTFrom: Marti Saman To: Carlton Alfaro MD Sent: 02/01/2019 12:51 PM EDT Subject: Symptoms Hello, This week starting Monday I???ve been getting migraines and blurry vision on and off. I did takemy Humira on Monday and also I stopped the meloxicam as of Monday. I wasn???t sure if the symptoms were associated with the medication or unrelated I did call the eye doctor but they are off today so I am going to follow up next. Saran, Carmen documented in this encounter Plan of Treatment Not on file documented as of this encounter Visit Diagnoses Not on filedocumented in this encounter Care Teams Right Of Way Cutter Relationship Specialty Start Date End Date Clark-Eleni Shelton MD PCP - General 09/06/0610/05 Wilbert Tan MD PCP - General Internal Medicine 10/06/20 1 06/13/20 Sonia Shea DO PCP - General Internal Medicine 04/13/21 10/05/23 Emelia Purvis MD PCP - General Internal Medicine 10/06/23 [facility], Pcp PCP - General Internal Medicine 01/30/24 documented as of this encounter
--- OUTSIDE RECORDS SUMMARY | 2024-08-24 08:54 | XMS_ITS | Encounter Summary ---
Author Organization [facility] Address [address] [place] [address] Care Team Providers Care Needle Board Repairer Name Role Phone Eleni Kenny MD Primary Care Provider Unavailable Wilbert Tan MD Primary Care Provide r Unavailable Sonia Shea DO Primary Care Provider Unavaila Emelia Mirza MD Primary Care Provider Un available [facility], [facility]cp Primary Care Provider Unavailabl e Encounter Details Date Type Department Care Team Description 01/28/2014 Pt. Non Urgent Medic al Question OBGYN - [place] [address] [place] [address] Zoila Brock MD Social History Tobacco Use Types Packs/Day Years Used Date Smoking Tobacco: Never Smokeless Tobacco: Never Comments: Alcohol Use Standard Drinks/Week Comments No 0 (1 standard drink = 0.6 oz pur e alcohol) Sex Assigned at Date Recorded Not on file documented as of this encounter Progress Notes * Jillian Tejada R.N. - 01/29/2014 9:40 AM EDTFrom: Marti Yeung To: Zoila Brock MD Sent: 01/28/2014 6:14 PM EDT Subject: Tb test Hi I was just wondering if it's safe to get tb test while ? Carmen Noonan documented in this encounter Plan of Treatment Not on file documented as of this encounter Visit Diagnoses Not on filedocumented in this encounter Care Teams Needle Board Repairer Relationship Specialty Start Date End Date Eleni Kenny MD PCP - General 09/06/0610/05 Wilbert Tan MD PCP - General Internal Medicine 10/06/20 1 06/13/20 Sonia Shea DO PCP - General Internal Medicine 04/13/21 10/05/23 Emelia Purvis MD PCP - General Internal Medicine 10/06/23 [facility], Pcp PCP - General Internal Medicine 01/30/24 documented as of this encounter
--- OUTSIDE RECORDS SUMMARY | 2024-08-24 08:55 | XMS_ITS | Clinical Summary ---
Author Organization [address] [place] [address] [place] [phone] Phone Care Team Providers Care Cafeteria Table Attendant Name Role Phone Emelia Purvis MD Primary Care Provider [phone] Encounters Date Type Department Care Team Description 06/29/2024 2:41 PM EST - 06/29/2024 11:59 PM EST Hospital Encounter Radiology Department [address] [phone] Encounter for screening mammogram for breast cancer Discharge Disposition: Home or Self Care 06/04/2024 3:15 PM EST - 06/04/2024 11:59 PM EST Hospital Encounter Walk-In Clinic [address] [phone] Discharge Disposition: Home or Self Care 06/04/2024 2:30 PM EST Office Visit Walk-In [address] [phone] Leonardo Redmond MD Anterior chest wall pain (Primary Dx); Muscle strain of chest wall, initial encounter from Last 3 Months Surgical History Surgery Date Site/Laterality Comments WISDOM TOOTH EXTRACTION PROCEDURE: HISTORICAL WISDOM TEETH EXTRACTION; COMMENT: 09/30 OTHER SURGICAL HISTORY 04/24/2012 PROCEDURE: AR DILATION & CURETTAGE DX&/THER NONOBSTETRIC; COMMENT: missed ab OTHER SURGICAL HISTORY 04/24/2012 PROCEDURE: LAPAROSCOPY, SURGICAL/BIOPSY; COMMENT: ovarian biopsy of chocolate cyst OTHER SURGICAL HISTORY 09/02/2020 N/A PROCEDURE: AR LAPS SURG CHOLECYSTECTOMY W/CHOLANGIOGRAPHY; COMMENT: Fauzia Dawkins [...] Onset fall 2013: pos GIOVANI, 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 + Raynaud's symptoms. 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 Mammo Location: [facility], [address] [place] [address], [address], . -------- FINAL REPORT -------- Dictated By: Carolyn Artis Dictated Date: 07/01/2024 11:49 ET Assigned Physician: Carolyn Artis Reviewed and Electronically Signed By: Carolyn Artis Signed Date: 07/01/2024 11:54 ET Workstation ID: [id number] Transcribed By: Self Edit Transcribed Date: 07/01/2024 [...] is recommended in 1 year. Mammo Location: [facility], [address] [place] [address], [address], . -------- FINAL REPORT -------- Dictated By: Carolyn Artis Dictated Date: 07/01/2024 11:49 ET Assigned Physician: Carolyn Artis Reviewed and Electronically Signed By: Carolyn Artis Signed Date: 07/01/2024 11:54 ET Workstation ID: [id number] Transcribed By: Self Edit Transcribed Date: 07/01/2024 [...] Signed Date: 06/04/2024 16:34 ET Workstation ID: [id number] Transcribed By: Self Edit Transcribed Date: 06/04/2024 [...] Signed Date: 06/04/2024 16:34 ET Workstation ID: [id number] Transcribed By: Self Edit Transcribed Date: 06/04/2024 16:22 ET Leonardo Redmond MD IMG XR PROCEDURES Final Result * Pap smear (11/14/2022) 11/14/2022 Narrative HISTORICAL TESTING LAB RESULTING AGENCY - 11/22/2022 9:50 AM EDT [id number] THINPREP PAP, IMAGED: NEGATIVE FOR SQUAMOUS INTRAEPITHELIAL [...] Most Recently Relevant to Health Maintenance Insurance [facility] Care Teams Cafeteria Table Attendant Relationship Specialty Start Date End Date Emelia Purvis MD PCP - General 10/06/23
--- OUTSIDE RECORDS SUMMARY | 2024-08-24 08:55 | XMS_ITS | Encounter Summary ---
Author Organization [facility] Address [address] [place] [address] Care Team Providers Care Fountain Helper Name Role Phone Eleni Kenny MD Primary Care Provider Unavailable Wilbert Tan MD Primary Care Provide r Unavailable Sonia Shea DO Primary Care Provider Unavaila ble Emelia Purvis MD Primary Care Provider Un available [facility], Pcp Primary Care Provider Unavailabl e Encounter Details Date Type Department Care Team Description 08/01/2014 Dice Person Report Medical Records [address] [place] [id number] Elías Diaz MD Social History Tobacco Use Types Packs/Day [...] on filedocumented in this encounter Care Teams Fountain Helper Relationship Specialty Start Date End Date Eleni Kenny MD PCP - General 09/06/0610/05 Wilbert Tan MD PCP - General Internal Medicine 10/06/20 1 06/13/20 Sonia Shea DO PCP - General Internal Medicine 04/13/21 10/05/23 Emelia Purvis MD PCP - General Internal Medicine 10/06/23 [facility], Pcp PCP - General Internal Medicine 01/30/24 documented as of this encounter
--- OUTSIDE RECORDS SUMMARY | 2024-08-24 08:55 | XMS_ITS | Encounter Summary ---
Author Organization [facility] Address [address] [place] [address] Care Team Providers Care Sleeve Tailor Name Role Phone Sonia Shea DO Primary Care Provider Unavaila [facility] Emelia Purvis MD Primary Care Provider Un available [facility], Pcp Primary Care Provider Unavailabl e Encounter Details Date Type Department Care Team Description 04/21/2023 Refill Adult Medicine [address] [address] Sonia Shea DO Social History Tobacco Use Types Packs/Day Years Used Date Smoking Tobacco: Never Smokeless Tobacco: Never Comments: Alcohol Use Standard Drinks/Week Comments Yes 0 (1 standard drink = 0.6 oz pur e alcohol) occ Sex Assigned at Date Recorded Not on file documented as of this encounter Miscellaneous Notes * Telephone Encounter - Herminia San M.A. - 04/21/2023 1:17 PM ESTFrom: Marti Davison To: Office of Jesus Alberto Shea Sent: 04/21/2023 11:51 AM EST Subject: Medication Renewal Request Refills have been requested for the following medications: Other - Valtrex Preferred pharmacy: [facility][id number] - [address] documented in this encounter Plan of Treatment Not on file documented as of this encounter Visit Diagnoses Not on filedocumented in this encounter Care Teams Sleeve Tailor Relationship Specialty Start Date End Date Sonia Shea DO PCP - General Internal Medicine 04/13/21 10/05/23 Emelia Purvis MD PCP - General Internal Medicine 10/06/23 [facility], Pcp PCP - General Internal Medicine 01/30/24 documented as of this encounter
--- OUTSIDE RECORDS SUMMARY | 2024-08-24 08:55 | XMS_ITS | Encounter Summary ---
Author Organization [facility] Address [address] [place] [address] Care Team Providers Care Greeter Name Role Phone Sonia Shea DO Primary Care Provider Unavaila ble Emelia Purvis MD Primary Care Provider Un available [facility], Pcp [facility] Encounter Details Date Type Department Care Team Description 01/25/2023 Hand Stonecutter Report Medical Records [address] [place] [address] Usman Mas Social History Tobacco Use Types Packs/Day Years [...] on filedocumented in this encounter Care Teams Greeter Relationship Specialty Start Date End Date Sonia Shea DO PCP - General Internal Medicine 04/13/21 10/05/23 Emelia Purvis MD PCP - General Internal Medicine 10/06/23 [facility], [facility]cp PCP - General Internal Medicine 01/30/24 documented as of this encounter
--- OUTSIDE RECORDS SUMMARY | 2024-08-24 08:55 | XMS_ITS | Encounter Summary ---
Author Organization [facility] Address [address] [place] [address] Care Team Providers Care Sand Bobber Name Role Phone Eleni Kneny MD Primary Care Provider Unavailable Wilbert Tan MD Primary Care Provide r Unavailable Sonia Shea DO Primary Care Provider Unavaila ble Emelia Purvis MD Primary Care Provider Un available [facility], Pcp Primary Care Provider Unavailabl e Encounter Details Date Type Department Care Team Description 07/28/2014 CANE FEEDER/[facility] Report Medical Records [address] [place] [address] Abstract, Provider Social History Tobacco Use Types [...] on filedocumented in this encounter Care Teams Sand Bobber Relationship Specialty Start Date End Date Eleni Kenny MD PCP - General 09/06/0610/05 Wilbert Tan MD PCP - General Internal Medicine 10/06/20 1 06/13/20 Sonia Shea DO PCP - General Internal Medicine 04/13/21 10/05/23 Emelia Purvis MD PCP - General Internal Medicine 10/06/23 [facility], Pcp PCP - General Internal Medicine 01/30/24 documented as of this encounter
--- OUTSIDE RECORDS SUMMARY | 2024-08-24 08:55 | XMS_ITS | Encounter Summary ---
Author Organization [facility] Address [address] [place] [address] Care Team Providers Care Rfid Specialist Name Role Phone Jhonatan-Eleni Shelton MD Primary Care Provider Unavailable Wilbert Tan MD Primary Care Provide r Unavailable Sonia Shea DO Primary Care Provider Unavaila Emelia Mirza MD Primary Care Provider Un available [facility], Pcp Primary Care Provider Unavailabl e Encounter Details Date Type Department Care Team Description 08/13/2015 Orders Only OBGYN - [address] [address] Leonardo Hernandez MD Early stage of (Primary Dx) Social History Tobacco Use Types Packs/Day Years Used Date Smoking Tobacco: Never Smokeless Tobacco: Never Comments: Alcohol Use Standard Drinks/Week Comments Yes 0 (1 standard drink = 0.6 oz pur e alcohol) occ Sex Assigned at Date Recorded Not on file documented as of this encounter Plan of Treatment Not on file documented as of this encounter Results * ULTRASOUND OB <14 WK SINGLE FETUS (08/21/2015 3:18 PM EDT) 08/21/2015 3:20 PM EDT Impressions [facility] OTHER EXTERNAL - 08/21/2015 3:24 PM EDT IMPRESSION: ??Single live intrauterine with estimated gestational age of 6 weeks 5 days with GENEVA 04/10/2016 based on ultrasound measurements. Narrative [facility] OTHER EXTERNAL - 08/21/2015 3:24 PM EDT ULTRASOUND OB <14 WK SINGLE FETUS, ULTRASOUND OB, TRANSVAGINAL OBSTETRICAL ULTRASOUND, FIRST TRIMESTER Prior study: OB ultrasound 08/13/2015. HISTORY: ??Followup from 08/13/2015-no pole seen. FINDINGS: ??There is a single live intrauterine with crown-rump length mean corresponding to an estimated gestational age based on ultrasound measurements of 6 weeks 5 days. Amniotic fluid appears normal. Yolk sac is identified. heart rate is 122 beats per minute. The cervix is closed and measures 3.8 cm in length. The right ovary measures ?? 2.5 x 3.3 x 2.6 ??cm. and contains a corpus luteum. The left ovary measures 3.0 x 4.3 x 2.3 cm. and contains a 3.7 x 1.8 x 3.0 cm cyst with uniformly dispersed internal echoes which could represent a hemorrhagic cyst versus endometrioma. There is a small amount of free fluid in the right adnexal region. Procedure Note Trinidad Fuentes MD - 08/21/2015 ULTRASOUND OB <14 WK SINGLE FETUS, ULTRASOUND OB, TRANSVAGINAL OBSTETRICAL ULTRASOUND, FIRST TRIMESTER Prior study: OB ultrasound 08/13/2015. HISTORY: Followup from 08/13/2015-no pole seen. FINDINGS: There is a single live intrauterine with crown-rumplength mean corresponding to an estimated gestational age based on ultrasoundmeasurements of 6 weeks 5 days. Amniotic fluid appears normal. Yolk sac is identified. heart rate is 122 beats per minute. The cervix is closed and measures 3.8 cm in length. The right ovary measures 2.5 x 3.3 x 2.6 cm. and contains a corpusluteum. The left ovary measures 3.0 x 4.3 x 2.3 cm. and contains a 3.7 x 1.8 x 3.0 cm cyst withuniformly dispersed internal echoes which could represent a hemorrhagic cyst versusendometrioma. There is a small amount of free fluid in the right adnexal region. IMPRESSION: Single live intrauterine with estimated gestationalage of 6 weeks 5 days with GENEVA 04/10/2016 based on ultrasound measurements. Leonardo Hernandez MD ULTRASOUND [facility] OTHER EXTERNAL documented in this encounter Visit Diagnoses Diagnosis Early stage of - Primary Early stage of documented in this encounter Care Teams Rfid Specialist Relationship Specialty Start Date End Date [place]-Eleni Shelton MD PCP - General 09/06/0610/05 Wilbert Tan MD PCP - General Internal Medicine 10/06/20 1 06/13/20 Sonia Shea DO PCP - General Internal Medicine 04/13/21 10/05/23 Emelia Purvis MD PCP - General Internal Medicine 10/06/23 [facility], Pcp PCP - General Internal Medicine 01/30/24 documented as of this encounter
--- OUTSIDE RECORDS SUMMARY | 2024-08-24 08:55 | XMS_ITS | Encounter Summary ---
Author Organization [facility] Address [address] [place] [address] Care Team Providers Care Communications Strategist Name Role Phone Jhonatan-Eleni Shelton MD Primary Care Provider Unavailable Wilbert Tan MD Primary Care Provide r Unavailable Sonia Shea DO Primary Care Provider Unavaila Emelia Mirza MD Primary Care Provider Un available [facility], Pcp Primary Care Provider Unavailabl e Encounter Details Date Type Department Care Team Description 06/01/2015 Pt. Non Urgent Medic al Question OBGYN - [place] [address] [place] [address] Roberta Wilkinson DO Social History Tobacco Use Types Packs/Day Years Used Date Smoking Tobacco: Never Smokeless Tobacco: Never Comments: Alcohol Use Standard Drinks/Week Comments Yes 0 (1 standard drink = 0.6 oz pur e alcohol) occ Sex Assigned at Date Recorded Not on file documented as of this encounter Progress Notes * Jillian Tejada R.N. - 06/01/2015 10:16 AM ESTFrom: Marti Yeung To: Roberta Wilkinson DO Sent: 06/01/2015 9:52 AM EST Subject: Doctors note Hi, I received my return to work note, can you change the date I was out from 05/26/15 through 06/02/15 notJanuary 2014. Thank you, Carmen documented in this encounter Plan of Treatment Not on file documented as of this encounter Visit Diagnoses Not on filedocumented in this encounter Care Teams Communications Strategist Relationship Specialty Start Date End Date [place]-Eleni Shelton MD PCP - General 09/06/0610/05 Wilbert Tan MD PCP - General Internal Medicine 10/06/20 1 06/13/20 Sonia Shea DO PCP - General Internal Medicine 04/13/21 10/05/23 Emelia Purvis MD PCP - General Internal Medicine 10/06/23 [facility], Pcp PCP - General Internal Medicine 01/30/24 documented as of this encounter
--- OUTSIDE RECORDS SUMMARY | 2024-08-24 08:55 | XMS_ITS | Encounter Summary ---
Author Organization [facility] Address [address] [place] [address] Care Team Providers Care Lead Nitrate Processor Name Role Phone Eleni Kenny MD Primary Care Provider Unavailable Wilbert Tan MD Primary Care Provide r Unavailable Sonia Shea DO Primary Care Provider Unavaila ble Emelia Purvis MD Primary Care Provider Un available [facility], Pcp Primary Care Provider Unavailabl e Encounter Details Date Type Department Care Team Description 10/06/2009 Release of Information Medical Records [address] [place] [address] Abstract, Provider Social History Tobacco Use Types Packs/Day Years Used Date Smoking Tobacco: Never Comments: Alcohol Use Standard Drinks/Week Comments Yes 5 (1 standard drink = 0.6 oz pur e alcohol) weekends; beer Sex Assigned at Date Recorded Not on file documented as of this encounter Plan of Treatment Not on file documented as of this encounter Visit Diagnoses Not on filedocumented in this encounter Care Teams Lead Nitrate Processor Relationship Specialty Start Date End Date Eleni Kenny MD PCP - General 09/06/0610/05 Wilbert Tan MD PCP - General Internal Medicine 10/06/20 1 06/13/20 Sonia Shea DO PCP - General Internal Medicine 04/13/21 10/05/23 Emelia Purvis MD PCP - General Internal Medicine 10/06/23 [facility], Pcp PCP - General Internal Medicine 01/30/24 documented as of this encounter
--- OUTSIDE RECORDS SUMMARY | 2024-08-24 08:55 | XMS_ITS | Encounter Summary ---
Author Organization [facility] Address [address] [place] [address] Care Team Providers Care Package Maker Name Role Phone Eleni Kenny MD Primary Care Provider Unavailable Wilbert Tan MD Primary Care Provide r Unavailable Sonia Shea DO Primary Care Provider Unavaila ble Emelia Purvis MD Primary Care Provider Un available [facility], Pcp Primary Care Provider Unavailabl e Encounter Details Date Type Department Care Team Description 08/26/2015 Zika Virus Medical Records [address] [place] [id number] Abstract, Provider Social History Tobacco Use Types [...] on filedocumented in this encounter Care Teams Package Maker Relationship Specialty Start Date End Date Eleni Kenny MD PCP - General 09/06/0610/05 Wilbert Tan MD PCP - General Internal Medicine 10/06/20 1 06/13/20 Sonia Shea DO PCP - General Internal Medicine 04/13/21 10/05/23 Emelia Purvis MD PCP - General Internal Medicine 10/06/23 [facility], Pcp PCP - General Internal Medicine 01/30/24 documented as of this encounter
--- OUTSIDE RECORDS SUMMARY | 2024-08-24 08:55 | XMS_ITS | Encounter Summary ---
Author Organization [facility] Address [address] [place] [address] Care Team Providers Care Layout Operator Name Role Phone Eleni Kenny MD Primary Care Provider Unavailable Wilbert Tan MD Primary Care Provide r Unavailable Sonia Shea DO Primary Care Provider Unavaila ble Emelia Purvis MD Primary Care Provider Un available [facility], Pcp Primary Care Provider Unavailabl e Encounter Details Date Type Department Care Team Description 09/02/2020 [facility] Medical Records [address] [place] [address] Hannah Mckeon MD [address] [place] [address] [address] [place] [address] Social History Tobacco Use Types Packs/Day Years [...] on filedocumented in this encounter Care Teams Layout Operator Relationship Specialty Start Date End Date Eleni Kenny MD PCP - General 09/06/0610/05 Wilbert Tan MD PCP - General Internal Medicine 10/06/20 1 06/13/20 Sonia Shea DO PCP - General Internal Medicine 04/13/21 10/05/23 Emelia Purvis MD PCP - General Internal Medicine 10/06/23 [facility], Pcp PCP - General Internal Medicine 01/30/24 documented as of this encounter
--- OUTSIDE RECORDS SUMMARY | 2024-08-24 08:55 | XMS_ITS | Encounter Summary ---
Author Organization [facility] Address [address] [place] [address] Care Team Providers Care Employee'S Representative Name Role Phone [place]-Eleni Shelton MD Primary Care Provider Unavailable Wilbert Tan MD Primary Care Provide r Unavailable Sonia Shea DO Primary Care Provider Unavaila Emelia Mirza MD Primary Care Provider Un available [facility], Pcp Primary Care Provider Unavailabl e Reason for Visit * Reason Onset Date Comments Advice 09/04/2020 Encounter Details Date Type Department Care Team Description 09/04/2020 Telephone General Surgery - [address] [place] [address] Hannah Mckeon MD [address] [place] [address] [address] [place], [place] [id number] Advice Social History Tobacco Use Types Packs/Day Years Used Date Smoking Tobacco: Never Smokeless Tobacco: Never Comments: Alcohol Use Standard Drinks/Week Comments Yes 0 (1 standard drink = 0.6 oz pur e alcohol) occ Sex Assigned at Date Recorded Not on file documented as of this encounter Miscellaneous Notes * Telephone Encounter - Liudmila Leslie M.A. 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 * Telephone Encounter - Kristy Fox - 09/07/2020 11:34 AM EDT Patient called again stating she needs the note by Mondayif possible. Shes trying to return to work 09/09/20. * Telephone Encounter - Linda Romeronier - 09/04/2020 12:40 PM EDT Pt didn't realize that the return to work note states light duty. Her work state that is no light duty available. Pt would like to return back to work however, she would need a return to work note with no restrictions. Please advise. documented in this encounter Plan of Treatment Not on file documented as of this encounter Visit Diagnoses Not on filedocumented in this encounter Care Teams Employee'S Representative Relationship Specialty Start Date End Date [place]-lEeni Shelton MD PCP - General 09/06/0610/05 Wilbert Tan MD PCP - General Internal Medicine 10/06/20 1 06/13/20 Sonia Shea DO PCP - General Internal Medicine 04/13/21 10/05/23 Emelia Purvis MD PCP - General Internal Medicine 10/06/23 [facility], Pcp PCP - General Internal Medicine 01/30/24 documented as of this encounter
--- OUTSIDE RECORDS SUMMARY | 2024-08-24 08:55 | XMS_ITS | Encounter Summary ---
Author Organization [facility] Address [address] [place] [address] Care Team Providers Care Glove Brusher Name Role Phone Jhonatan-Eleni Shelton MD Primary Care Provider Unavailable Wilbert Tan MD Primary Care Provide r Unavailable Sonia Shea DO Primary Care Provider Unavaila Emelia Mirza MD Primary Care Provider Un available [facility], Pcp Primary Care Provider Unavailabl e Encounter Details Date Type Department Care Team Description 02/11/2014 Pt. Non Urgent Medic al Question OBGYN - [place] [address] [place] [address] Zoila Brock MD Social History Tobacco Use Types Packs/Day Years Used Date Smoking Tobacco: Never Smokeless Tobacco: Never Comments: Alcohol Use Standard Drinks/Week Comments No 0 (1 standard drink = 0.6 oz pur e alcohol) Sex Assigned at Date Recorded Not on file documented as of this encounter Progress Notes * Jillian Tejada R.N. - 02/11/2014 8:45 AM EDTFrom: Marti Yeung To: Zoila Brock MD Sent: 02/11/2014 7:07 AM EDT Subject: Question Hi, I started spotting yesterday light pink in color only when wiping. Im not having any cramping or pain. Should i be concerned or get checked out? Carmen Noonan documented in this encounter Plan of Treatment Not on file documented as of this encounter Visit Diagnoses Not on filedocumented in this encounter Care Teams Glove Brusher Relationship Specialty Start Date End Date [place]-Eleni Shelton MD PCP - General 09/06/0610/05 Wilbert Tan MD PCP - General Internal Medicine 10/06/20 1 06/13/20 Sonia Shea DO PCP - General Internal Medicine 04/13/21 10/05/23 Emelia Purvis MD PCP - General Internal Medicine 10/06/23 [facility], Pcp PCP - General Internal Medicine 01/30/24 documented as of this encounter
--- OUTSIDE RECORDS SUMMARY | 2024-08-24 08:55 | XMS_ITS | Encounter Summary ---
Author Organization [facility] Address [address] [place] [address] Care Team Providers Care Residential Nurse Name Role Phone [place]-Eleni Shelton MD Primary Care Provider Unavailable Wilbert Tan MD Primary Care Provide r Unavailable Sonia Shea DO Primary Care Provider Unavaila Emelia Mirza MD Primary Care Provider Un available [facility], Pcp Primary Care Provider Unavailabl e Reason for Visit * Reason Onset Date Comments Work note 09/08/2020 Encounter Details Date Type Department Care Team Description 09/08/2020 Telephone General Surgery - [address] [place] [address] Hannah Mckeon MD [address] [place] [address] [address] [place], [place] [phone] Work note Social History Tobacco Use Types Packs/Day Years Used Date Smoking Tobacco: Never Smokeless Tobacco: Never Comments: Alcohol Use Standard Drinks/Week Comments Yes 0 (1 standard drink = 0.6 oz pur e alcohol) occ Sex Assigned at Date Recorded Not on file documented as of this encounter Miscellaneous Notes * Telephone Encounter - Liudmila Leslie M.A. 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 * Telephone Encounter - Mame Ortiz - 09/08/2020 11:21 AM EDT Pt would like a work note that states no work restrictions - light duty isnt available at her job & pt needs to return to work documented in this encounter Plan of Treatment Not on file documented as of this encounter Visit Diagnoses Not on filedocumented in this encounter Care Teams Residential Nurse Relationship Specialty Start Date End Date [place]-Eleni Shelton MD PCP - General 09/06/0610/05 Wilbert Tan MD PCP - General Internal Medicine 10/06/20 1 06/13/20 Sonia Shea DO PCP - General Internal Medicine 04/13/21 10/05/23 Emelia Purvis MD PCP - General Internal Medicine 10/06/23 [facility], Pcp PCP - General Internal Medicine 01/30/24 documented as of this encounter
--- OUTSIDE RECORDS SUMMARY | 2024-08-24 08:55 | XMS_ITS | Encounter Summary ---
Author Organization [facility] Address [address] [place] [address] Care Team Providers Care Smash Piecer Name Role Phone Sonia Shea DO Primary Care Provider Unavaila ble Emelia Purvis MD Primary Care Provider Un available [facility], Pcp [facility] Encounter Details Date Type Department Care Team Description 07/27/2023 Data Management Engineer Report Medical Records [address] [place] [id number] Usman Mas Social History Tobacco Use Types [...] on filedocumented in this encounter Care Teams Smash Piecer Relationship Specialty Start Date End Date Sonia Shea DO PCP - General Internal Medicine 04/13/21 10/05/23 Emelia Purvis MD PCP - General Internal Medicine 10/06/23 [facility], Pcp PCP - General Internal Medicine 01/30/24 documented as of this encounter
--- OUTSIDE RECORDS SUMMARY | 2024-08-24 08:55 | XMS_ITS | Encounter Summary ---
Author Organization [facility] Address [address] [place] [address] Care Team Providers Care Hydrologist Name Role Phone Eleni Kenny MD Primary Care Provider Unavailable Wilbert Tan MD Primary Care Provide r Unavailable Sonia Shea DO Primary Care Provider Unavaila ble Emelia Purvis MD Primary Care Provider Un available [facility], Pcp Primary Care Provider Unavailabl e Encounter Details Date Type Department Care Team Description 05/26/2015 [facility] Medical Records [address] [place] [phone] Roberta Wilkinson DO Social History Tobacco Use [...] on filedocumented in this encounter Care Teams Hydrologist Relationship Specialty Start Date End Date Eleni Kenny MD PCP - General 09/06/0610/05 Wilbert Tan MD PCP - General Internal Medicine 10/06/20 1 06/13/20 Sonia Shea DO PCP - General Internal Medicine 04/13/21 10/05/23 Emelia Purvis MD PCP - General Internal Medicine 10/06/23 [facility], Pcp PCP - General Internal Medicine 01/30/24 documented as of this encounter
--- OUTSIDE RECORDS SUMMARY | 2024-08-24 08:55 | XMS_ITS | Encounter Summary ---
Author Organization [facility] Address [address] [place] [address] Care Team Providers Care Brick And Block Mason Name Role Phone Eleni Kenny MD Primary Care Provider Unavailable Wilbert Tan MD Primary Care Provide r Unavailable Sonia Shea DO Primary Care Provider Unavaila Emelia Mirza MD Primary Care Provider Un available [facility], Pcp Primary Care Provider Unavailabl e Encounter Details Date Type Department Care Team Description 09/08/2020 Orders Only Medical Records [address] [place] [phone] Hannah Mckeon MD [address] [place] [address] [place] [phone] Social History Tobacco Use Types Packs/Day Years Used Date Smoking Tobacco: Never Smokeless Tobacco: Never Comments: Alcohol Use Standard Drinks/Week Comments Yes 0 (1 standard drink = 0.6 oz pur e alcohol) occ Sex Assigned at Date Recorded Not on file documented as of this encounter Plan of Treatment Not on file documented as of this encounter Procedures Procedure Name Priority Date/Time Associated Diagnosis Comments OUTSIDE PATHOLOGY Routine 09/02/2020 documented in this encounter Results * OUTSIDE PATHOLOGY (09/02/2020) Hannah Mckeon MD OUTSIDE LAB documented in this encounter Visit Diagnoses Not on filedocumented in this encounter Care Teams Brick And Block Mason Relationship Specialty Start Date End Date Eleni Kenny MD PCP - General 09/06/0610/05 Wilbert Tan MD PCP - General Internal Medicine 10/06/20 1 06/13/20 Sonia Shea DO PCP - General Internal Medicine 04/13/21 10/05/23 Emelia Purvis MD PCP - General Internal Medicine 10/06/23 [facility], Pcp PCP - General Internal Medicine 01/30/24 documented as of this encounter
--- OUTSIDE RECORDS SUMMARY | 2024-08-24 08:55 | XMS_ITS | Encounter Summary ---
Author Organization [facility] Address [address] [place] [address] Care Team Providers Care Neon Light Installer Name Role Phone Sonia Shea DO Primary Care Provider Unavaila ble Emelia Purvis MD Primary Care Provider Un available Community, Pcp Primary Care Provider Unavailabl e Encounter Details Date Type Department Care Team Description 08/07/2023 Orders Only Medical Records [address] [place] [id number] Usman Mas Social History Tobacco Use Types [...] Name Priority Date/Time Associated Diagnosis Comments OUTSIDE LAB Routine 07/26/2023 documented in this encounter Results * OUTSIDE LAB (07/26/2023) [facility] documented in this encounter Visit Diagnoses Not on filedocumented in this encounter Care Teams Neon Light Installer Relationship Specialty Start Date End Date Sonia Shea DO PCP - General Internal Medicine 04/13/21 10/05/23 Emelia Purvis MD PCP - General Internal Medicine 10/06/23 Community, Pcp PCP - General Internal Medicine 01/30/24 documented as of this encounter
--- OUTSIDE RECORDS SUMMARY | 2024-08-24 08:55 | XMS_ITS | Clinical Summary ---
Author Organization [employer] Address [address] [facility] 7 [place] [address] Care Team Providers Care Mental Health Coordinator Name Role Phone Unavailable Primary Care Provider [...] complete this topic Insurance , [address] [place] [address]
[2024-08-24 10:57] LABS: Albumin Level 4.3 g/dL (3.5-5.0); Alkaline Phosphatase 52 U/L (39-117); Aspartate Amino Transferase 52 U/L (5-31); Bilirubin Direct 0.2 mg/dL (0.0-0.5); Bilirubin Total 0.5 mg/dL (0.0-1.0); Total Protein 7.1 g/dL (6.5-8.0)
[2024-08-24 11:05] LABS: Monotest Negative (Negative)
[2024-08-24 11:07] LABS: Alanine Aminotransferase 82 U/L (0-31); Ferritin 80 ng/mL (10-250)
[2024-08-26 04:48] LABS: HBS Num1 20.72 mIU/mL (0-7.99); Hepatitis A Antibody IgM 0.15 Index (0-0.79); Hepatitis B Core Antibody Nonreactive (Nonreactive); Hepatitis B Surface Antigen Negative (Negative); ~HepC Num1 0.08 S/CO (0.00-0.79); ~Hepatitis A Antibody IgM Nonreactive (Nonreactive); ~Hepatitis B Surface Antibody REACTIVE (Nonreactive); ~Hepatitis C Antibody Nonreactive (Nonreactive)
[2024-08-27 17:08] LABS: Zinc 80 mcg/dL (60-130)
== END 2024-08-24 08:53 | disposition home or self-care (01) ==
LOC: HO.LAB 08:52
PROVIDERS: PCP Nurse Practitioner Family; Visit Provider Nurse Practitioner Family
DX: R94.5 Abnormal results of liver function studies (principal); R79.89 Other specified abnormal findings of blood chemistry; R76.8 Other specified abnormal immunological findings in serum
CPT/HCPCS: 36415; 80076; 82728; 84630; 86308; 86704; 86706; 86709; 86803; 87340

== ENCOUNTER 2024-09-18 14:17 | Outpatient (AMB) | payer OTHER, SELFPAY ==
--- OUTSIDE RECORDS SUMMARY | 2024-09-18 15:11 | XMS_ITS | Clinical Summary ---
Author Organization [address] [place] [address] [place] [phone] Phone Care Team Providers Care Dinkey Dispatcher Name Role Phone Emelia Purvis MD Primary Care Provider [phone] [phone] Encounters Date Type Department Care Team Description 06/29/2024 2:41 PM EST - 06/29/2024 11:59 PM EST Hospital Encounter Radiology Department - [address] [address] Encounter for screening mammogram for breast cancer Discharge Disposition: Home or Self Care from Last 3 Months Surgical History Surgery Date Site/Laterality Comments WISDOM TOOTH EXTRACTION PROCEDURE: HISTORICAL WISDOM TEETH EXTRACTION; COMMENT: 09/30 OTHER SURGICAL HISTORY 04/24/2012 PROCEDURE: OH DILATION & CURETTAGE DX&/THER NONOBSTETRIC; COMMENT: missed ab OTHER SURGICAL HISTORY 04/24/2012 PROCEDURE: LAPAROSCOPY, SURGICAL/BIOPSY; COMMENT: ovarian biopsy of chocolate cyst OTHER SURGICAL HISTORY 09/02/2020 N/A PROCEDURE: OH LAPS SURG CHOLECYSTECTOMY W/CHOLANGIOGRAPHY; COMMENT: Dr. Hannah Mckeon [facility] Medical History Medical History Date Comments Atopic dermatitis DX:Atopic derm atitis Papanicolaou smear of cervix with atypical squamous cells of undetermined significance (ASC-US) DX:Papanicolaou sme ar of cervix with atypical squamous cells of undetermined significance (ASC-US); COMMENT: HPV 04/2009, colpo is negative 05/2009 Inflammatory polyarthropathy (CMS/HCC V24, CMS/HCC V28) 09/09/2014 DX:Inflammatory polyarthropa thy (HCC); COMMENT: Onset fall 2013: pos GIOVANI, pos anti DIRECTOR OF SERVICES. 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 + Raynaud's symptoms. 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 Mammo Location: [facility], [address] [place] [address], [address], . -------- FINAL REPORT -------- Dictated By: Carolyn Artis Dictated Date: 07/01/2024 11:49 ET Assigned Physician: Carolyn Artis Reviewed and Electronically Signed By: Carolyn Artis Signed Date: 07/01/2024 11:54 ET Workstation ID: [id number] Transcribed By: Self Edit Transcribed Date: 07/01/2024 11:49 ET Narrative 07/01/2024 11:54 AM EDT Baseline mammogram. ??Screening examination. Please take a note that last name is changed from GRIJALVA ??to DIONY. CLINICAL: 38 years old, Female, [...] is recommended in 1 year. Mammo Location: [facility], [address] [place] [address], [address], . -------- FINAL REPORT -------- Dictated By: Carolyn Artis Dictated Date: 07/01/2024 11:49 ET Assigned Physician: Carolyn Artis Reviewed and Electronically Signed By: Carolyn Artis Signed Date: 07/01/2024 11:54 ET Workstation ID: [id number] Transcribed By: Self Edit Transcribed Date: 07/01/2024 11:49 ET us Brenden De Santiago CNJuan IMG BI PROCEDURES Final Resul t * Pap smear (11/14/2022) 11/14/2022 Narrative HISTORICAL TESTING LAB RESULTING AGENCY - 11/22/2022 9:50 AM EDT [id number] THINPREP PAP, IMAGED: NEGATIVE FOR SQUAMOUS INTRAEPITHELIAL [...] HPV NEG, [Z01.419] us Brenden De Santiago CN LAB CYTOLOGY ORDERABLES Final Result HISTORICAL TESTING LAB RESULTING AGENCY from Last 3 Months or Most Recently Relevant to Health Maintenance Insurance [facility] Care Teams Dinkey Dispatcher Relationship Specialty Start Date End Date Emelia Purvis MD PCP - General 10/06/23
--- NOTE | 2024-09-18 16:30 | MHC.PC.OV ---
Intake Visit Reasons: lab review Allergies sulfamethoxazole [From Bactrim] Allergy (Severe, Verified 09/18/24 16:32) Rash trimethoprim [From Bactrim] Allergy (Severe, Verified 09/18/24 16:32) Rash hydroxychloroquine Allergy (Mild, Verified 09/18/24 16:32) Rash Medication List - Last Reconciled 09/18/24 by CRYSTAL MartinP- valacyclovir 500 mg PO BID Tobacco use date assessed: 07/25/24 Dental Screening Dental Screen Date: 07/25/24 HPI HPI Comments History of Present Illness Details 38 y/o F with Rheumatoid arthritis, psoriasis, leukopenia, endometreosis, HSV 1, seasonal allergies, GIOVANI +, prison use of immunosuppresant drug, hx of abnormal pap ASCUS HPV 2009 s/p colpo s/p lap camille History of Present Illness - The patient is a 38-year-old female presenting with abnormal liver function tests and intermittent right-sided abdominal discomfort. - Elevated liver enzymes persist from previous lab results. - Stopped NSAID and Tylenol post muscle strain in May, no improvement in LFTs - Intermittent right-sided abdominal discomfort, not classified as pain, with no nausea or vomiting. - Discomfort occurs randomly, not food-related. - Occasional alcohol consumption noted. a few times per week. - Negative hepatitis test; normal pancreatic function. Assessment and Plan 1. Elevated liver enzymes - Suspect hepatic steatosis. - ABD ultrasound with elastography ordered. - Lifestyle modifications discussed if no fibrosis. If + fibrosis will rec referral to GI 2. Alcohol use - Advised moderation. - Discussed effects on liver health. 4. Follow-up - Await ultrasound results. - Possible GI referral if needed. - Portal message for follow-up scheduling. Telehealth Attestation The patient encounter was conducted via telehealth. The information documented is accurate and complete based on the audio and/or video interaction with the patient. The patient has been explained that this is an interactive (audio/video) telehealth encounter and what that consists of. The patient understands and wishes to proceed. Patient Conversation Media platform was used. Total time spent caring for the patient today was 15 minutes. This includes time spent before the visit reviewing the chart, time spent during the visit, and time spent after the visit on documentation, reviewing laboratory results, diagnostic imaging, medications, performing a medically necessary evaluation, counseling on diagnoses, care coordination, ordering appropriate tests, ordering appropriate medications, review of tests performed by other providers, reporting test results with the patient, communication with other healthcare providers. [facility] Medical History (Updated 07/27/24 @ 14:20 [facility] Hx of abnormal cervical Pap smear Ovarian cyst Surgical History (Updated 07/25/24 @ 08:34 by [facility] History of D&C History of removal of ovarian cyst Hx laparoscopic cholecystectomy Family History (Updated 07/25/24 @ 08:30 by Varsha Grant MA) Maternal Grandmother Lung cancer Maternal Grandfather Substance abuse Social History (Updated 07/25/24 @ 08:25 by Varsha Grant MA) Household Members: Family and Children Both parents involved: No Caregiver staying overnight: No Housing: House Are you a primary lawn caretaker to a significant other at home: No Do you presently have visiting nurse or other home services: No 75 years or older and lives alone: No Alcohol intake: current Alcohol intake frequency: a few times a month Patient Tobacco Use Status: Never used Tobacco e-Cigarette/Vaping Use: Never Used Second Hand Smoke Exposure: No service: No Current occupational status: employed 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 Syed Alvarado, Ida Javed, Luis Hutchinson and colleagues, with an educational cesar from [employer]. Physical exam (Primary Care) Tobacco/Smoking Status: Tobacco use Status Tobacco use date assessed 07/25/24 08/05/24 17:06 Patient Tobacco Use Status Never used Tobacco 08/05/24 17:06 e-Cigarette/Vaping Use Never Used 08/05/24 17:06 Thrive Assessment: Date of Thrive Assessment Date Thrive assessed 07/18/24 08/05/24 17:06 Telehealth Telehealth [facility]health [facility] Location of provider rendering services: practice address Location of patient: address on file Patient Identification confirmed using: Name, : Yes Telehealth method: voice only Patient verbally consented to treatment: Yes Patient verbally consented to billing insurance company: Yes Patient informed of any privacy concerns related to visit: Yes Minutes spent on Phone/Video with Pt.: 6 Results Reviewed Results Reviewed: RUN: 09/18/24 1631 PAGE 1 [facility] [address] [place] [address] Key Person: Brayan Lebron M.D. Specimen Inquiry Name: Marti Davison Age/Sex: 38/F : 1985 Unit#: [id number] Attend Dr: Lauren Owens SPECIAL DELIVERY CLERK-BC Re08/24/24 Status: DEP [facility] Disch: SPEC : [id number] SAEID: 08/24/24 STATUS: COMP REQ : [id number] RECD: 08/24/[address]: Lauren Owens-BC COMP: 08/26/24 ENTERED: 08/24/[address]: ORDERED: [facility] Test Result Flag Reference HepA-M Interp Nonreactive Nonreactive IgM antibodies to HAV not detected; does not exclude early acute or recovered HAV infection. Anti-HBS REACTIVE Nonreactive REACTIVE: > 11.99 mIU/mL Anti-HBc Nonreactive Nonreactive Anti-HCV Nonreactive Nonreactive Antibodies to HCV not detected; does not exclude early acute HCV infection. HBsAG Negative Negative Coding Level of Care Code Tele Est Pt Level 2 (24665) Complex EM visit Add On G2211 Diagnoses Elevated LFTs R79.89 Assessment & Plan Assessment & Plan (1) Elevated LFTs: Code(s): R79.89 - Other specified abnormal findings of blood chemistry Category: Medical Plan . Orders: Orders US abdomen complete Today R79.89 - Other specified abnormal findings of blood chemistry
== END 2024-09-18 17:00 | disposition home or self-care (01) ==
LOC: HO.HMCFM 14:17
PROVIDERS: PCP Nurse Practitioner Family; Visit Provider Nurse Practitioner Family
DX: R79.89 Other specified abnormal findings of blood chemistry (principal)

== ENCOUNTER → 2024-09-18 14:17 | Outpatient (BNVA) | payer OTHER, SELFPAY | PROVIDERS: PCP Nurse Practitioner Family; Visit Provider Nurse Practitioner Family | DX: Z13.89 Encounter for screening for other disorder (principal) ==

== ENCOUNTER 2024-11-12 08:13 | Outpatient (REF) | payer OTHER, SELFPAY ==
--- NOTE | ~2024-11-12 | US_ITS ---
EXAMINATION: US ABDOMEN COMPLETE WITH LIVER ELASTOGRAPHY HISTORY: R79.89 - Other specified abnormal findings of blood chemistry TECHNIQUE: Real-time grayscale ultrasound imaging of the abdomen was performed and images were reviewed. COMPARISON: There are no prior studies available for comparison. FINDINGS: Liver: The right lobe of the liver measures 14.4 cm in size. The left lobe of the liver measures 9.4 cm in size. The liver demonstrates increased echotexture, consistent with steatosis. No focal mass or intrahepatic biliary ductal dilatation is identified. There is normal hepatopedal flow in the portal vein. Ultrasound elastography of the liver was performed with 10 separate measurements of the liver parenchyma with the patient in the supine position. Measurements were obtained approximately 2 cm below Ruperto's capsule and perpendicular to the capsule. The median shear wave velocity is 1.59 m/s. The interquartile range/median (IQR/median) is 0.19. Gallbladder and biliary tree: The gallbladder is surgically absent. The common bile duct is normal in caliber measuring 7 mm. Kidneys: The right kidney measures 10.5 cm in length. The left kidney measures 9.9 cm in length. The kidneys are unremarkable, without evidence of masses, hydronephrosis, or calculi. Pancreas: The pancreatic head, neck, and body are unremarkable. The pancreatic tail is obscured by bowel gas. Spleen: The spleen is normal in size and contour, measuring 9.2 cm in length. Abdominal aorta and inferior vena cava: The visualized portions of the abdominal aorta and inferior vena cava are normal in caliber. There is no free fluid in the abdomen. US/US abdomen comp w elastography IMPRESSION: Hepatic steatosis. The median shear wave velocity in the liver is 1.59 m/s, corresponding to a median liver stiffness of 7.88 kPa. The IQR/median value is 0.19. This is indicative of a poor quality data set, and the estimated liver stiffness may be unreliable. Findings are indicative of a low elastography value which rules out advanced chronic liver disease in asymptomatic patients. REFERENCE: Society of Radiologists in Ultrasound Liver Stiffness Thresholds (2020): LIVER STIFFNESS THRESHOLDS: *Shear wave velocity less than 1.3 m/s (Liver Stiffness equal or less than 5 kPa): High probability of being normal. *Shear wave velocity less than 1.7 m/s (Liver Stiffness less than 9 kPa): In the absence of other known clinical signs, rules out compensated advanced chronic liver disease. *Shear wave velocity between 1.7-2.1 m/s (Liver Stiffness 9-13 kPa): Suggestive of compensated advanced chronic liver disease but need further test for confirmation. *Shear wave velocity between 2.1-2.4 m/s (Liver Stiffness 13-17 kPa): Rules in compensated advanced chronic liver disease. *Shear wave velocity greater than 2.4 m/s (Liver Stiffness over 17 kPa): Suggestive of clinically significant portal hypertension. QUALITY OF DATA SET: *IQR/Median value equal or less than 0.15 implies a quality data set. *IQR/Median value over 0.15 implies a poor quality data set. SIGNIFICANT CHANGE FROM PRIOR EXAM: Significant change if liver stiffness measurement is 10% or greater from prior exam. OTHER CONSIDERATIONS: The stage of liver fibrosis may be overestimated in the setting of acute hepatitis, liver inflammation, elevated liver function tests, hepatic vascular congestion, obstructive cholestasis, non-fasting state, and infiltrative diseases such as amyloidosis and lymphoma. In some patients with NAFLD, the liver stiffness thresholds for compensated advanced chronic liver disease may be lower. In causes other than viral hepatitis and NAFLD, liver stiffness thresholds are not well established. Electronically signed by: Syed Boone MD 11/12/2024 09:49 AM EDT
--- OUTSIDE RECORDS SUMMARY | 2024-11-12 08:19 | XMS_ITS | Clinical Summary ---
Author Organization [address] [place] [address] [place] [phone] Phone Care Team Providers Care Sugar Trucker Name Role Phone Emelia Purvis MD Primary Care Provider [phone] [phone] Surgical History Surgery Date Site/Laterality Comments WISDOM TOOTH EXTRACTION PROCEDURE: HISTORICAL WISDOM TEETH EXTRACTION; COMMENT: 09/30 OTHER SURGICAL HISTORY 04/24/2012 PROCEDURE: NM DILATION & CURETTAGE DX&/THER NONOBSTETRIC; COMMENT: missed ab OTHER SURGICAL HISTORY 04/24/2012 PROCEDURE: LAPAROSCOPY, SURGICAL/BIOPSY; COMMENT: ovarian biopsy of chocolate cyst OTHER SURGICAL HISTORY 09/02/2020 N/A PROCEDURE: NM LAPS SURG CHOLECYSTECTOMY W/CHOLANGIOGRAPHY; COMMENT: Dr. 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 + Raynaud's symptoms. 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 current use of immunosuppressive drug Family History [...] 77 06/04/2024 2:58 PM EST Temperature 36.6 C (97.8 F) 06/04/2024 2:58 PM EST Respiratory Rate - - Oxygen Saturation 98% 06/04/2024 2:58 PM EST Inhaled Oxygen Concentration - - Weight 78 kg (172 lb) 12/07/2023 8:01 AM EDT Height 165.1 cm (5' 5 ) 12/07/2023 8:01 AM EDT Body Mass Index 28.62 12/07/2023 8:01 AM EDT Plan of Treatment Upcoming Encounters Date Type Department Care Team (Late st Contact Info) Description 01/01/2025 10:00 AM EDT Office Visit Obstetrics and Gynecology [address] [phone] Brenden De Santiago, CARLITA [address] [place] [address] Health Maintenance Due Date Last Done Comments Hepatitis B Vaccines (1 of 3 - 19+ 3-dose series) 11/03/2002 HIV Screening 04/02/2022 Hepatitis C Screening 04/02/2022 Social Influencers of Health Screening 04/02/2022 COVID-19 Vaccine ( season) 2023 06/19/2020, 05/22/2020 Depression Screening 04/24/2024 Influenza Vaccine (#1) 2024 , 02/16/2022, 02/01/2020, Additional history exists Cervical Cancer Screening: Pap Smear 11/14/2025 11/14/2022, 02/16/2018 DTaP,Tdap,and Td Vaccines (3 - Td or Tdap) 03/22/2026 03/22/2016, 12/28/2006 Breast Cancer Screening 06/29/2026 06/29/2024 HIB Vaccines Aged Out No longer eligi [...] 5 Years) and At-Risk Patients (6 to 49 Years) Aged Out No longer eligible based [...] is recommended in 1 year. Mammo Location: [facility], [address] [place] [address], [address], . -------- FINAL REPORT -------- Dictated By: Carolyn Artis Dictated Date: 07/01/2024 11:49 ET Assigned Physician: Carolyn Artis Reviewed and Electronically Signed By: Carolyn Artis Signed Date: 07/01/2024 11:54 ET Workstation ID: [id number] Transcribed By: Self Edit Transcribed Date: 07/01/2024 11:49 ET Narrative 07/01/2024 11:54 AM EDT Baseline mammogram. Screening examination. Please take a [...] evidence of suspicious mass or architectural distortion. No worrisome calcifications are evident. BREAST DENSITY: C - [...] is recommended in 1 year. Mammo Location: [facility], [address] [place] [address], [address], . -------- FINAL REPORT -------- Dictated By: Carolyn Artis Dictated Date: 07/01/2024 11:49 ET Assigned Physician: Carolyn Artis Reviewed and Electronically Signed By: Carolyn Artis Signed Date: 07/01/2024 11:54 ET Workstation ID: [id number] Transcribed By: Self Edit Transcribed Date: 07/01/2024 11:49 ET Brenden De Santiago CNM IMG BI PROCEDURES Final Resul t * Pap smear (11/14/2022) 11/14/2022 Narrative HISTORICAL TESTING LAB RESULTING AGENCY - 11/22/2022 9:50 AM EDT [id number] THINPREP PAP, IMAGED: NEGATIVE FOR SQUAMOUS INTRAEPITHELIAL LESION AND MALIGNANCY . ABUNDANT PARTIALLY OBSCURING ACUTE INFLAMMATORY CELLS ARE PRESENT. DAPHNEY ESPINOZA , BIBI(ASCP) (CASE ELECTRONICALLY SIGNED 11 22 2022) RESULT OF APTIMA HIGH RISK HPV ASSAY: HIGH RISK HPV: NEGATIVE (SEROTYPES 16,18,31,33,35,39,45,51,52,56,58,59,66,68) COMPLETED ON 2022-11-15 ADEQUACY: SATISFACTORY ENDOCERVICAL/TRANSFORMATION ZONE COMPONENT PRESENT. SOURCE: THINPREP PAP HPV ANY DX: REFLEX 16 AND 18, CERVICAL, IMAGED CLINICAL INFORMATION: HPV ANY DIAGNOSIS. PAP HX NEGATIVE LAST PAP 02/16/18 NEG, HPV NEG, [Z01.419] Brenden De Santiago CNM LAB CYTOLOGY ORDERABLES Final Result HISTORICAL TESTING LAB RESULTING AGENCY from Last 3 Months or Most Recently Relevant to Health Maintenance Insurance [facility] Care Teams Sugar Trucker Relationship Specialty Start Date End Date Emelia Purvis MD PCP - General 10/06/23
--- OUTSIDE RECORDS SUMMARY | 2024-11-12 08:19 | XMS_ITS | Clinical Summary ---
Author Organization [employer] Address [address] [facility] 7 [place] [address] Care Team Providers Care Tubular Splitting Machine Tender Name Role Phone Unavailable Primary Care Provider Unavailabl e Immunizations Immunization Administration Dates Next Due Influenza, seasonal, injectable, [...] 1985 Lipid Panel 1985 SDOH Screening 1985 Disability Screening 1985 Alcohol/Substance Use Screening 1995 Tobacco Screening 1995 Family Planning (PISQ) 11/03/1998 HPV Vaccines (1 - 3-dose series) 11/03/1998 Hepatitis C Screening 11/03/2001 Hepatitis B Vaccines (1 of 3 - 19+ 3-dose series) 11/03/2002 Pap Smear 11/03/2004 Cervical Cancer Screening 11/03/2013 HPV/Cotest 11/03/2013 Mammogram 2023 COVID-19 Vaccine ( season) 2023 06/19/2020, 05/22/2020 Influenza Vaccine (#1) 2024 , 02/16/2022, 02/01/2020, Additional history exists DTaP/Tdap/Td Vaccines (3 - Td or Tdap) 03/22/2026 03/22/2016, 12/28/2006 Zoster Vaccines (1 of 2) 11/03/2033 RSV Patients and Patients Aged 60 years or older (1 - 1-dose 75+ series) 11/03/2058 HIB Vaccines Aged Out No longer eligi [...] Years) and At-Risk Patients (6 to 49) Years Aged Out No longer eligible based on patient's age to complete this topic RSV under 20 months Aged Out No longe r eligible based on patient's age to complete this topic Rotavirus Vaccines Aged Out No longer eligible based on patient's age to complete this topic Insurance , [address] [place] [address]
== END 2024-11-12 08:14 | disposition home or self-care (01) ==
LOC: HO.US 08:13
PROVIDERS: PCP Nurse Practitioner Family; Visit Provider Nurse Practitioner Family
DX: R79.89 Other specified abnormal findings of blood chemistry (principal)
CPT/HCPCS: 76700; 76981

== ENCOUNTER → 2024-11-12 08:16 | Outpatient (BNV) | payer OTHER, SELFPAY | PROVIDERS: PCP Nurse Practitioner Family; Visit Provider Radiology Diagnostic Radiology | DX: K76.0 Fatty (change of) liver, not elsewhere classified (principal) | CPT/HCPCS: 76700 ==

== ENCOUNTER 2024-11-15 10:55 | Outpatient (AMB) | payer OTHER, SELFPAY ==
--- NOTE | 2024-11-15 07:34 | MHC.PC.OV ---
Intake Visit Reasons: Test Results Allergies sulfamethoxazole (From Bactrim) Allergy (Severe, Verified 11/15/24 07:34) Rash trimethoprim (From Bactrim) Allergy (Severe, Verified 11/15/24 07:34) Rash hydroxychloroquine Allergy (Mild, Verified 11/15/24 07:34) Rash Medication List - Last Reconciled 11/15/24 by Lauren Owens, [employer]- valacyclovir 500 mg PO BID Tobacco use date assessed: 07/25/24 Dental Screening Dental Screen Date: 07/25/24 HPI HPI Comments History of Present Illness Details 39 y/o F with Rheumatoid arthritis, psoriasis, leukopenia, endometreosis, HSV 1, seasonal allergies, GIOVANI +, penitentiary use of immunosuppresant drug, hx of abnormal pap ASCUS HPV 2009 s/p colpo s/p lap camille History of Present Illness - The patient is a 39-year-old female presenting to fu on US of liver - Ultrasound indicates fatty liver with normal appearing liver image, no masses. - Discussed dietary and lifestyle contribution, alcohol use. - No current treatments; options discussed for medications and nutrition consults. Review of Systems - Gastrointestinal: Reports information about hepatic steatosis from the portal. - Nutrition: Denies any specific dietary issues but discussed general dietary habits. Results - Imaging: Liver ultrasound showed hepatic steatosis. See below Assessment and Plan 1. Hepatic Steatosis - Diagnosis based on ultrasound findings - Discussed nutrition consult and potential metformin use or GLP1 - Referral to gastroenterology considered for further evaluation not needed at this time - She would like to do diet/lifestyle mods; no meds at this time. - Planned follow-up labs before next physical exam for monitoring. - If worsening of LFTs or if sx develop, could consider meds/referral at that time. Telehealth Attestation This visit was conducted via telehealth, and all findings and interactions are accurately documented as per the patient's report. The patient has been explained that this is an interactive (audio/video) telehealth encounter and what that consists of. The patient understands and wishes to proceed. IMScouting platform was used. Total time spent caring for the patient today was 15 minutes. This includes time spent before the visit reviewing the chart, time spent during the visit, and time spent after the visit on documentation, reviewing laboratory results, diagnostic imaging, medications, performing a medically necessary evaluation, counseling on diagnoses, care coordination, ordering appropriate tests, ordering appropriate medications, review of tests performed by other providers, reporting test results with the patient, communication with other healthcare providers. [facility] Medical History (Updated 11/15/24 @ 15:50 by [facility] Hx of abnormal cervical Pap smear Ovarian cyst Surgical History (Updated 07/25/24 @ 08:34 by JAMAL Martin) History of D&C History of removal of ovarian cyst Hx laparoscopic cholecystectomy Family History (Updated 07/25/24 @ 08:30 by Varsha Grant MA) Maternal Grandmother Lung cancer Maternal Grandfather Substance abuse Social History (Updated 07/25/24 @ 08:25 by Varsha Grant MA) Household Members: Family and Children Both parents involved: No Caregiver staying overnight: No Housing: House Are you a primary pet care attendant to a significant other at home: No Do you presently have visiting nurse or other home services: No 75 years or older and lives alone: No Alcohol intake: current Alcohol intake frequency: a few times a month Patient Tobacco Use Status: Never used Tobacco e-Cigarette/Vaping Use: Never Used Second Hand Smoke Exposure: No service: No Current occupational status: employed 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 Syed Alvarado, Ida Javed, Luis Hutchinson and colleagues, with an educational cesar from [employer]. Physical exam (Primary Care) Tobacco/Smoking Status: Tobacco use Status Tobacco use date assessed 07/25/24 11/15/24 07:34 Patient Tobacco Use Status Never used Tobacco 11/15/24 07:34 e-Cigarette/Vaping Use Never Used 11/15/24 07:34 Thrive Assessment: Date of Thrive Assessment Date Thrive assessed 07/18/24 11/15/24 07:34 Telehealth Telehealth [facility] Location of provider rendering services: practice address Location of patient: address on file Patient Identification confirmed using: Name, : Yes Telehealth method: voice only Patient verbally consented to treatment: Yes Patient verbally consented to billing insurance company: Yes Patient informed of any privacy concerns related to visit: Yes Minutes spent on Phone/Video with Pt.: 7 Results Reviewed Results Reviewed: [address] [address] Ultrasound Report Signed Patient: Marti Davison MR#: [id number] : 1985 Acct:[id number] Age/Sex: 39 / F ADM Date: 11/12/24 Loc: HO.US Attending Dr: Lauren WADSWORTH Ordering Physician: Lauren Owens Date of Service: 11/12/24 Procedure(s): US abdomen comp w elastography Accession Number(s): [id number] cc: Lauren Owens~ EXAMINATION: US ABDOMEN COMPLETE WITH LIVER ELASTOGRAPHY HISTORY: R79.89 - Other specified abnormal findings of blood chemistry TECHNIQUE: Real-time grayscale ultrasound imaging of the abdomen was performed and images were reviewed. COMPARISON: There are no prior studies available for comparison. FINDINGS: Liver: The right lobe of the liver measures 14.4 cm in size. The left lobe of the liver measures 9.4 cm in size. The liver demonstrates increased echotexture, consistent with steatosis. No focal mass or intrahepatic biliary ductal dilatation is identified. There is normal hepatopedal flow in the portal vein. Ultrasound elastography of the liver was performed with 10 separate measurements of the liver parenchyma with the patient in the supine position. Measurements were obtained approximately 2 cm below Ruperto's capsule and perpendicular to the capsule. The median shear wave velocity is 1.59 m/s. The interquartile range/median (IQR/median) is 0.19. Gallbladder and biliary tree: The gallbladder is surgically absent. The common bile duct is normal in caliber measuring 7 mm. Kidneys: The right kidney measures 10.5 cm in length. The left kidney measures 9.9 cm in length. The kidneys are unremarkable, without evidence of masses, hydronephrosis, or calculi. Pancreas: The pancreatic head, neck, and body are unremarkable. The pancreatic tail is obscured by bowel gas. Spleen: The spleen is normal in size and contour, measuring 9.2 cm in length. Abdominal aorta and inferior vena cava: The visualized portions of the abdominal aorta and inferior vena cava are normal in caliber. There is no free fluid in the abdomen. US/US abdomen comp w elastography IMPRESSION: Hepatic steatosis. The median shear wave velocity in the liver is 1.59 m/s, corresponding to a median liver stiffness of 7.88 kPa. The IQR/median value is 0.19. This is indicative of a poor quality data set, and the estimated liver stiffness may be unreliable. Findings are indicative of a low elastography value which rules out advanced chronic liver disease in asymptomatic patients. REFERENCE: Society of Radiologists in Ultrasound Liver Stiffness Thresholds (2020): LIVER STIFFNESS THRESHOLDS: *Shear wave velocity less than 1.3 m/s (Liver Stiffness equal or less than 5 kPa): High probability of being normal. *Shear wave velocity less than 1.7 m/s (Liver Stiffness less than 9 kPa): In the absence of other known clinical signs, rules out compensated advanced chronic liver disease. *Shear wave velocity between 1.7-2.1 m/s (Liver Stiffness 9-13 kPa): Suggestive of compensated advanced chronic liver disease but need further test for confirmation. *Shear wave velocity between 2.1-2.4 m/s (Liver Stiffness 13-17 kPa): Rules in compensated advanced chronic liver disease. *Shear wave velocity greater than 2.4 m/s (Liver Stiffness over 17 kPa): Suggestive of clinically significant portal hypertension. QUALITY OF DATA SET: *IQR/Median value equal or less than 0.15 implies a quality data set. *IQR/Median value over 0.15 implies a poor quality data set. SIGNIFICANT CHANGE FROM PRIOR EXAM: Significant change if liver stiffness measurement is 10% or greater from prior exam. OTHER CONSIDERATIONS: The stage of liver fibrosis may be overestimated in the setting of acute hepatitis, liver inflammation, elevated liver function tests, hepatic vascular congestion, obstructive cholestasis, non-fasting state, and infiltrative diseases such as amyloidosis and lymphoma. In some patients with NAFLD, the liver stiffness thresholds for compensated advanced chronic liver disease may be lower. In causes other than viral hepatitis and NAFLD, liver stiffness thresholds are not well established. Electronically signed by: Syed Boone MD 11/12/2024 09:49 AM EDT Coding Level of Care Code Tele Est Pt Level 2 (61370) Complex EM visit Add On G2211 Diagnoses Hepatic steatosis K76.0 GIOVANI positive R76.8 Elevated LFTs R79.89 Assessment & Plan Assessment & Plan (1) Hepatic steatosis: Onset Date: ~10/2024 Code(s): K76.0 - Fatty (change of) liver, not elsewhere classified Category: Medical (2) GIOVANI positive: Code(s): R76.8 - Other specified abnormal immunological findings in serum Category: Medical (3) Elevated LFTs: Code(s): R79.89 - Other specified abnormal findings of blood chemistry Category: Medical Plan . Orders: Orders Microalbumin, Random (w Creat) 06/22/25 K76.0 - Fatty (change of) liver, not elsewhere classified, R79.89 - Other specified abnormal findings of blood chemistry, Z00.00 - Encounter for general adult medical examination without abnormal findings Complete Blood Count no Diff 06/22/25 K76.0 - Fatty (change of) liver, not elsewhere classified, R79.89 - Other specified abnormal findings of blood chemistry, Z00.00 - Encounter for general adult medical examination without abnormal findings Comprehensive Met. Panel 06/22/25 K76.0 - Fatty (change of) liver, not elsewhere classified, R79.89 - Other specified abnormal findings of blood chemistry, Z00.00 - Encounter for general adult medical examination without abnormal findings Lipid Panel 06/22/25 K76.0 - Fatty (change of) liver, not elsewhere classified, R79.89 - Other specified abnormal findings of blood chemistry, Z00.00 - Encounter for general adult medical examination without abnormal findings TSH reflex Free T4 06/22/25 K76.0 - Fatty (change of) liver, not elsewhere classified, R79.89 - Other specified abnormal findings of blood chemistry, Z00.00 - Encounter for general adult medical examination without abnormal findings Vitamin B12 and Folate 06/22/25 K76.0 - Fatty (change of) liver, not elsewhere classified, R79.89 - Other specified abnormal findings of blood chemistry, Z00.00 - Encounter for general adult medical examination without abnormal findings Vitamin D 25-OH Total 06/22/25 K76.0 - Fatty (change of) liver, not elsewhere classified, R79.89 - Other specified abnormal findings of blood chemistry, Z00.00 - Encounter for general adult medical examination without abnormal findings
--- OUTSIDE RECORDS SUMMARY | 2024-11-15 11:03 | XMS_ITS | Clinical Summary ---
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 + Raynaud's symptoms. 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 Mammo Location: [facility], [address] [place] [address], [phone], . -------- FINAL REPORT -------- Dictated By: Carolyn Artis Dictated Date: 07/01/2024 11:49 ET Assigned Physician: Carolyn Artis Reviewed and Electronically Signed By: Carolyn Artis Signed Date: 07/01/2024 11:54 ET Workstation ID: [id number] Transcribed By: Self Edit Transcribed Date: 07/01/2024 [...] is recommended in 1 year. Mammo Location: [facility], [address] [place] [address], [id number], . -------- FINAL REPORT -------- Dictated By: Carolyn Artis Dictated Date: 07/01/2024 11:49 ET Assigned Physician: Carolyn Artis Reviewed and Electronically Signed By: Carolyn Artis Signed Date: 07/01/2024 11:54 ET Workstation ID: [id number] Transcribed By: Self Edit Transcribed Date: 07/01/2024 11:49 ET Brenden De Santiago CNM IMG BI PROCEDURES Final Resul t * Pap smear (11/14/2022) 11/14/2022 Narrative HISTORICAL TESTING LAB RESULTING AGENCY - 11/22/2022 9:50 AM EDT [id number] THINPREP PAP, IMAGED: NEGATIVE FOR SQUAMOUS INTRAEPITHELIAL [...] Most Recently Relevant to Health Maintenance Insurance [facility] Care Teams [employer] Art [employer] Relationship Specialty Start Date End Date Emelia Purvis MD PCP - General 10/06/23
--- OUTSIDE RECORDS SUMMARY | 2024-11-15 11:03 | XMS_ITS | Clinical Summary ---
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
--- OUTSIDE RECORDS SUMMARY | 2024-11-15 11:03 | XMS_ITS ---
Author Name [facility] Organization Unknown Care Team Organization Name Specialty Phone Email Start Date End Da te [facility] Sonia Shea DO Primary Care 03/01/202211/22
== END 2024-11-15 15:55 | disposition home or self-care (01) ==
LOC: HO.HMCFM 10:55
PROVIDERS: PCP Nurse Practitioner Family; Visit Provider Nurse Practitioner Family
DX: K76.0 Fatty (change of) liver, not elsewhere classified (principal); R76.8 Other specified abnormal immunological findings in serum; R79.89 Other specified abnormal findings of blood chemistry